=== PATIENT | male | born 1985 | race Caucasian/White ===

== ENCOUNTER 2017-02-26 17:28 | Observation (INO) ==
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
[2017-02-26 18:46] LABS: Basophils # 0.1 K/mcL (0.0-0.2); Basophils % 1.2 %; Eosinophils # 0.2 K/mcL (0.0-0.6); Eosinophils % 2.7 %; Hematocrit 44.3 % (37.5-50.1); Hemoglobin 15.2 g/dL (12.9-16.9); Immature Granulocytes % 0.3 % (0-4); Lymphocytes # 2.5 K/mcL (0.6-4.6); Lymphocytes % 33.9 %; Mean Corpuscular HGB Conc 34.3 g/dL (31.6-35.5); Mean Corpuscular Hemoglobin 29.8 pg (28.0-33.3); Mean Corpuscular Volume 86.9 fL (83.0-100.0); Mean Platelet Volume 10.1 fL (9.4-12.4); Monocytes # 0.7 K/mcL (0.0-1.3); Monocytes % 8.9 %; Neutrophils # 3.9 K/mcL (1.6-8.9); Platelet Count 346 K/mcL (140-400); Red Cell Distribution Width 15.3 % (11.5-14.5)
[2017-02-26 19:01] LABS: Acetaminophen < 1.0 mcg/mL (10-30); BUN/Creatinine Ratio 12 (6-26); Blood Urea Nitrogen 8 mg/dL (8-26); Calcium 9.3 mg/dL (8.6-10.8); Carbon Dioxide 28 mEq/L (19-29); Chloride 99 mEq/L (98-109); Ethanol < 10 mg/dL (0-10); Glucose 94 mg/dL (70-99); Osmolality,Calculated 282 (280-300); Potassium 3.9 mEq/L (3.5-4.5); Salicylate < 5.0 mg/dL (15-30); Sodium 137 mEq/L (136-145); eGFR For African Americans > 60 (> 60); eGFR For Non-African Americans > 60 (> 60)
[2017-02-26 19:34] LABS: Bilirubin,Urine Negative (Negative); Blood,Urine Negative (Negative); Clarity,Urine Clear (Clear); Color,Urine Yellow (Yellow); Glucose,Urine (UA) Normal (Normal); Ketones,Urine Negative (Negative); Leukocyte Esterase,Urine Trace (Negative); Nitrite,Urine Negative (Negative); PH,Urine 5.5 pH Units (5.0-8.0); Protein,Urine Negative (Neg-Trace); Specific Gravity,Urine 1.017 (1.010-1.025); Urobilinogen,Urine Normal (Normal)
[2017-02-26 19:37] LABS: Bacteria,Urine None Seen per hpf (None-Few); Hyaline Casts,Urine None Seen per lpf (None-Few); RBC,Urine 0-3 per hpf (0-3); Squamous Epithelial Cell,Urine Moderate per lpf (None-Few)
[2017-02-26 19:40] LABS: Amphetamine Screen,Urine Negative ng/mL (Cutoff=1000); Barbiturate Screen,Urine Negative ng/mL (Cutoff=200); Benzodiazepines Screen,Urine Negative ng/mL (Cutoff=200); Cannabinoid Screen,Urine Positive ng/mL (Cutoff = 50); Cocaine Screen,Urine Negative ng/mL (Cutoff= 300); Opiate Screen,Urine Positive ng/mL (Cutoff=300); Phencyclidine Screen,Urine Negative ng/mL (Cutoff=25)
--- NOTE | 2017-02-26 20:04 | Emergency Department Note ---
START Narrative - START START: I examined this patient and my medical decision-making was reviewed with the SCRIPT COORDINATOR/PA/Advanced Practice Nurse/Resident Physician. I agree with the documented findings, disposition and treatment plan as described except to the extent set forth below. The patient does have suicidal ideation. No visual or auditory hallucinations. Has had 2 suicide attempts in the past. Will be kept for mental health evaluation 2003
--- NOTE | 2017-02-26 23:37 | Emergency Department Note ---
Disposition Clinical Impression: Suicidal ideation Disposition: Admitted As Inpatient Condition: Fair Referrals: NO,PCP [Primary Care Provider] - Forms: ED Satisfaction Letter Psych HPI - General Chief Complaint: ED Psychiatric Symptoms Stated Complaint: SI Time Seen by Provider: 02/26/17 17:57 Source: patient - History of Present Illness Improves with: medication Worsens with: drug use - Related Data Home Medications Medication Instructions Recorded Confirmed Buprenorphine HCl/Naloxone HCl 16 mg SL BID 11/09/16 01/19/17 [Suboxone 4 mg-1 mg Sl Film] Previous Rx's Medication Instructions Recorded Ibuprofen [Motrin] 600 mg PO Q6HR PRN #20 tab 01/19/17 Allergies Allergy/AdvReac Type Severity Reaction Status Date / Time No Known Allergies Allergy Verified 11/09/16 15:05 Musculoskeletal: Reports: joint swelling, arthralgia Neurological: Reports: weakness Psychiatric: Reports: depression, suicidal thoughts Past Medical History - Past Medical History Medical history: Reports: non-contributory Surgical history: Reports: non-contributory Psychiatric history: Reports: depression - Social History Smoking Status: Current every day smoker Smokeless Tobacco Status: No Alcohol use: Reports: heavy Drug use: Reports: opiates, marijuana, other (see HPI) Physical Exam - General Limitations: no limitations General appearance: alert, in no apparent distress Course Course Narrative: This patient was signed out at shift change from Dr. sood and Dr. Broderick. Please refer to their notes for complete details of history and physical examination. Patient presented for suicidal ideation and has been evaluated by the psychiatry service. At shift change the patient is just awaiting placement and a [facility] treatment facility for psychiatry and substance abuse. 03:20 patient is being admitted here to [address] Psych Service. Vital Signs Temperature 97.9 F 02/26/17 17:29 Pulse Rate 88 02/26/17 17:29 Respiratory Rate 16 02/26/17 17:29 Blood Pressure 134/77 02/26/17 17:29 O2 Sat by Pulse Oximetry 97 02/26/17 17:29 Temperature 97.9 F 02/26/17 17:29 Pulse Rate 72 02/27/17 02:31 Respiratory Rate 18 02/27/17 02:31 Blood Pressure 112/7 02/27/17 02:31 O2 Sat by Pulse Oximetry 94 L 02/27/17 02:31 Oxygen Delivery Oxygen Delivery Room Air Psych - Lab Data Result diagrams: 02/26/17 18:28 02/26/17 18:28 Lab Results 02/26/17 02/26/17 02/26/17 Range/Units 18:05 18:05 18:28 WBC 7.4 (4.3-11.1) K/mcL RBC 5.10 (4.19-5.50) M/mcL Hgb 15.2 (12.9-16.9) g/dL Hct 44.3 (37.5-50.1) % MCV 86.9 (83.0-100.0) fL MCH 29.8 (28.0-33.3) pg MCHC 34.3 (31.6-35.5) g/dL RDW 15.3 H (11.5-14.5) % Plt Count 346 (140-400) K/mcL MPV 10.1 (9.4-12.4) fL Immature Gran % 0.3 (0-4) % Seg Neutrophils % 53.0 % Lymphocytes % 33.9 % Monocytes % 8.9 % Eosinophils % 2.7 % Basophils % 1.2 % Neutrophils # 3.9 (1.6-8.9) K/mcL Lymphocytes # 2.5 (0.6-4.6) K/mcL Monocytes # 0.7 (0.0-1.3) K/mcL Eosinophils # 0.2 (0.0-0.6) K/mcL Basophils # 0.1 (0.0-0.2) K/mcL Sodium (136-145) mEq/L Potassium (3.5-4.5) mEq/L Chloride (98-109) mEq/L Carbon Dioxide (19-29) mEq/L BUN (8-26) mg/dL Creatinine (0.72-1.25) mg/dL Est GFR ( Amer) (> 60) Est GFR (Non-Af Amer) (> 60) BUN/Creatinine Ratio (6-26) Glucose (70-99) mg/dL Calculated Osmolality (280-300) Calcium (8.6-10.8) mg/dL Urine Color Yellow (Yellow) Urine Clarity Clear (Clear) Urine pH 5.5 (5.0-8.0) pH Units Ur Specific [place] 1.017 (1.010-1.025) Urine Protein Negative (Neg-Trace) mg/dL Urine Glucose (UA) Normal (Normal) mg/dL Urine Ketones Negative (Negative) mg/dL Urine Blood Negative (Negative) Urine Nitrite Negative (Negative) Urine Bilirubin Negative (Negative) Urine Urobilinogen Normal (Normal) mg/dL Ur Leukocyte Esterase Trace H (Negative) Urine Microscopic RBC 0-3 (0-3) per hpf Urine Microscopic WBC 5-15 H (0-3) per hpf Ur Squamous Epith Cells Moderate H (None-Few) per lpf Urine Bacteria None Seen (None-Few) per hpf Hyaline Casts None Seen (None-Few) per lpf Salicylates (15-30) mg/dL Urine Opiates Screen Positive H (Fdpaxw=703) ng/mL Acetaminophen (10-30) mcg/mL Ur Barbiturates Screen Negative (Kogdma=686) ng/mL Ur Phencyclidine Scrn Negative (Cutoff=25) ng/mL Ur Amphetamines Screen Negative (Tmqcnl=1282) ng/mL U Benzodiazepines Scrn Negative (Bzivko=795) ng/mL Urine Cocaine Screen Negative (Cutoff= 300) ng/mL U Marijuana (THC) Screen Positive H (Cutoff = 50) ng/mL Ethyl Alcohol (0-10) mg/dL 02/26/17 Range/Units 18:28 WBC (4.3-11.1) K/mcL RBC (4.19-5.50) M/mcL Hgb (12.9-16.9) g/dL Hct (37.5-50.1) % MCV (83.0-100.0) fL MCH (28.0-33.3) pg MCHC (31.6-35.5) g/dL RDW (11.5-14.5) % Plt Count (140-400) K/mcL MPV (9.4-12.4) fL Immature Gran % (0-4) % Seg Neutrophils % % Lymphocytes % % Monocytes % % Eosinophils % % Basophils % % Neutrophils # (1.6-8.9) K/mcL Lymphocytes # (0.6-4.6) K/mcL Monocytes # (0.0-1.3) K/mcL Eosinophils # (0.0-0.6) K/mcL Basophils # (0.0-0.2) K/mcL Sodium 137 (136-145) mEq/L Potassium 3.9 (3.5-4.5) mEq/L Chloride 99 (98-109) mEq/L Carbon Dioxide 28 (19-29) mEq/L BUN 8 (8-26) mg/dL Creatinine 0.68 L (0.72-1.25) mg/dL Est GFR ( Amer) > 60 (> 60) Est GFR (Non-Af Amer) > 60 (> 60) BUN/Creatinine Ratio 12 (6-26) Glucose 94 (70-99) mg/dL Calculated Osmolality 282 (280-300) Calcium 9.3 (8.6-10.8) mg/dL Urine Color (Yellow) Urine Clarity (Clear) Urine pH (5.0-8.0) pH Units Ur Specific [place] (1.010-1.025) Urine Protein (Neg-Trace) mg/dL Urine Glucose (UA) (Normal) mg/dL Urine Ketones (Negative) mg/dL Urine Blood (Negative) Urine Nitrite (Negative) Urine Bilirubin (Negative) Urine Urobilinogen (Normal) mg/dL Ur Leukocyte Esterase (Negative) Urine Microscopic RBC (0-3) per hpf Urine Microscopic WBC (0-3) per hpf Ur Squamous Epith Cells (None-Few) per lpf Urine Bacteria (None-Few) per hpf Hyaline Casts (None-Few) per lpf Salicylates < 5.0 L (15-30) mg/dL Urine Opiates Screen (Rimuuh=496) ng/mL Acetaminophen < 1.0 L (10-30) mcg/mL Ur Barbiturates Screen (Qtkgrc=910) ng/mL Ur Phencyclidine Scrn (Cutoff=25) ng/mL Ur Amphetamines Screen (Vdkwrj=2189) ng/mL U Benzodiazepines Scrn (Lngbrs=145) ng/mL Urine Cocaine Screen (Cutoff= 300) ng/mL U Marijuana (THC) Screen (Cutoff = 50) ng/mL Ethyl Alcohol < 10 (0-10) mg/dL Psychiatric Medical Clearance - Medical Clearance Checklist Medical History: No Social History Section defined Current Vitals: Last Vital Signs Temp 97.9 F 02/26/17 17:29 Pulse 72 02/27/17 02:31 Resp 18 02/27/17 02:31 BP 112/7 02/27/17 02:31 Pulse Ox 94 L 02/27/17 02:31 Psychiatric Lab Panel: Drug Levels and Toxicity 02/26/17 02/26/17 18:05 18:28 Urine Opiates Screen Positive H Acetaminophen < 1.0 L Ur Barbiturates Screen Negative Ur Phencyclidine Scrn Negative Ur Amphetamines Screen Negative U Benzodiazepines Scrn Negative Urine Cocaine Screen Negative U Marijuana (THC) Screen Positive H Ethyl Alcohol < 10 Abnormal Labs: Abnormal lab results RDW 15.3 % (11.5-14.5) H 02/26/17 18:28 Creatinine 0.68 mg/dL (0.72-1.25) L 02/26/17 18:28 Ur Leukocyte Esterase Trace (Negative) H 02/26/17 18:05 Urine Microscopic WBC 5-15 per hpf (0-3) H 02/26/17 18:05 Ur Squamous Epith Cells Moderate per lpf (None-Few) H 02/26/17 18:05 Salicylates < 5.0 mg/dL (15-30) L 02/26/17 18:28 Urine Opiates Screen Positive ng/mL (Yeqjcq=271) H 02/26/17 18:05 Acetaminophen < 1.0 mcg/mL (10-30) L 02/26/17 18:28 U Marijuana (THC) Screen Positive ng/mL (Cutoff = 50) H 02/26/17 18:05 Statement of Medical Clearance: I have evaluated the patient, reviewed diagnostic information, and certify that the patient's medical condition is sufficiently stable that transfer to the psychiatric unit does not pose a significant risk of deterioration.
[2017-02-27] MEDS ORDERED: traZODone 50 MG TABLET PO PRN (03:40)
[2017-02-27] MEDS ORDERED: *HR* LORazepam 1 MG TABLET PO PRN (03:40)
[2017-02-27] MEDS ORDERED: hydrOXYzine pamoate 25 MG CAPSULE PO PRN (03:40)
[2017-02-27] MEDS ORDERED: *HR* LORazepam 2 MG/ML VIAL IM PRN (03:40)
[2017-02-27] MEDS ORDERED: Ibuprofen 400 MG TABLET PO PRN (03:40)
[2017-02-27] MEDS ORDERED: MOM Conc 10 ML UD.LIQ PO PRN (03:40)
[2017-02-27] MEDS ORDERED: Haloperidol Lactate 5 MG/ML VIAL IM PRN (03:40)
[2017-02-27] MEDS ORDERED: Mag Hydrox/Al Hydrox/Simeth 30 ML UDC PO PRN (03:40)
[2017-02-27] MEDS: Nicotine 21 MG PATCH.TD24 TD SCH ×2 (04:02→09:14)
[2017-02-27 09:29] VITALS: BP 110/69
--- NOTE | 2017-02-27 13:08 | Discharge Summary ---
Date of Encounter: 02/28/17 Time of Encounter: 12:00 History of Present Illness Chief complaint: Suicidal ideation on and off Admitted From: Emergency Dept History of Present Illness: Mr. Jfafe is a 31 year old male admitted from the emergency room suicidal ideation and dependence on opiates and consuming large quantities of alcohol. Patient stated that he is interested in detox and Suboxone . he said he has Suboxone at home and he wants to go home and use. and during the evaluation patient was anxious and decided that this hospitalization is not going to help him and he did not believe the medication will help him and he believed that he needed to be referred to a chemical dependency program. 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 Patient was medically stable and denied any suicidal ideation or self- harm. Past Med Surg Social Fam HX - Past Medical History Medical history: non-contributory - Past Psychiatric History Psychiatric history: Reports: anxiety, depression, prior suicide attempt, previous psychiatric hospitalization, other (Substance abuse and dependence, opiate dependence) Family psychiatric history: Unknown Family History of Suicide: Unknown - Past Surgical History Surgical History: non-contributory - Social History Smoking Status: Current every day smoker Smokeless Tobacco Status: No Alcohol use: heavy Drug use: opiates, marijuana, other (see HPI) Medications - Discharge Medications Buprenorphine HCl/Naloxone HCl [Suboxone 4 mg-1 mg Sl Film] 16 mg SL BID [History] Ibuprofen [Motrin] 600 mg PO Q6HR PRN #20 tab 01/19/17 [Rx] Allergies No Known Allergies Allergy (Verified 11/09/16 15:05) Review of Systems Psychiatric: Reports: suicidal ideation, other (Need Suboxone) Mental Status Exam - Mental Status Exam Patient orientation: Yes Person, Yes Time, Yes Place Level of alertness: Alert Patient appearance: Appropriate, Well Groomed Behavior: calm, cooperative, anxious, impulsive Psychomotor activity: Normal Eye contact: Maintains Eye Contact Mood description: Anxious, Labile Affect description: congruent with mood, full range, anxious Speech pattern: Normal rate, Normal rhythm, Normal tone Speech Volume: Normal Thought process: Linear, Goal Oriented Thought Content: No Suicidal ideation, No Homicidal ideation, No Overt delusions Perceptual Disturbances: No Auditory hallucinations, No Visual hallucinations Judgment: Limited Insight: Partial Results - Vital Signs Vital signs: Temp Pulse Resp BP Pulse Ox 98.2 F 62 18 110/69 94 L 02/27/17 09:25 02/27/17 09:25 02/27/17 09:25 02/27/17 09:25 02/27/17 02:31 - Labs Labs: Laboratory Last Values WBC 7.4 K/mcL (4.3-11.1) 02/26/17 18:28 RBC 5.10 M/mcL (4.19-5.50) 02/26/17 18:28 Hgb 15.2 g/dL (12.9-16.9) 02/26/17 18:28 Hct 44.3 % (37.5-50.1) 02/26/17 18:28 MCV 86.9 fL (83.0-100.0) 02/26/17 18: MCH 29.8 pg (28.0-33.3) 02/26/17 18: MCHC 34.3 g/dL (31.6-35.5) 02/26/17 18:28 RDW 15.3 % (11.5-14.5) H 02/26/17 18:28 Plt Count 346 K/mcL (140-400) 02/26/17 18:28 MPV 10.1 fL (9.4-12.4) 02/26/17 18:28 Immature Gran % 0.3 % (0-4) 02/26/17 18:28 Seg Neutrophils % 53.0 % 02/26/17 18:28 Lymphocytes % 33.9 % 02/26/17 18:28 Monocytes % 8.9 % 02/26/17 18:28 Eosinophils % 2.7 % 02/26/17 18:28 Basophils % 1.2 % 02/26/17 18:28 Neutrophils # 3.9 K/mcL (1.6-8.9) 02/26/17 18:28 Lymphocytes # 2.5 K/mcL (0.6-4.6) 02/26/17 18:28 Monocytes # 0.7 K/mcL (0.0-1.3) 02/26/17 18:28 Eosinophils # 0.2 K/mcL (0.0-0.6) 02/26/17 18:28 Basophils # 0.1 K/mcL (0.0-0.2) 02/26/17 18:28 Sodium 137 mEq/L (136-145) 02/26/17 18:28 Potassium 3.9 mEq/L (3.5-4.5) 02/26/17 18:28 Chloride 99 mEq/L (98-109) 02/26/17 18:28 Carbon Dioxide 28 mEq/L (19-29) 02/26/17 18:28 BUN 8 mg/dL (8-26) 02/26/17 18:28 Creatinine 0.68 mg/dL (0.72-1.25) L 02/26/17 18:28 Est GFR ( Amer) > 60 (> 60) 02/26/17 18:28 Est GFR (Non-Af Amer) > 60 (> 60) 02/26/17 18:28 BUN/Creatinine Ratio 12 (6-26) 02/26/17 18:28 Glucose 94 mg/dL (70-99) 02/26/17 18:28 Calculated Osmolality 282 (280-300) 02/26/17 18:28 Calcium 9.3 mg/dL (8.6-10.8) 02/26/17 18:28 Urine Color Yellow (Yellow) 02/26/17 18:05 Urine Clarity Clear (Clear) 02/26/17 18:05 Urine pH 5.5 pH Units (5.0-8.0) 02/26/17 18:05 Ur Specific [place] 1.017 (1.010-1.025) 02/26/17 18:05 Urine Protein Negative mg/dL (Neg-Trace) 02/26/17 18:05 Urine Glucose (UA) Normal mg/dL (Normal) 02/26/17 18:05 Urine Ketones Negative mg/dL (Negative) 02/26/17 18:05 Urine Blood Negative (Negative) 02/26/17 18:05 Urine Nitrite Negative (Negative) 02/26/17 18:05 Urine Bilirubin Negative (Negative) 02/26/17 18:05 Urine Urobilinogen Normal mg/dL (Normal) 02/26/17 18:05 Ur Leukocyte Esterase Trace (Negative) H 02/26/17 18:05 Urine Microscopic RBC 0-3 per hpf (0-3) 02/26/17 18:05 Urine Microscopic WBC 5-15 per hpf (0-3) H 02/26/17 18:05 Ur Squamous Epith Cells Moderate per lpf (None-Few) H 02/26/17 18:05 Urine Bacteria None Seen per hpf (None-Few) 02/26/17 18:05 Hyaline Casts None Seen per lpf (None-Few) 02/26/17 18:05 Salicylates < 5.0 mg/dL (15-30) L 02/26/17 18:28 Urine Opiates Screen Positive ng/mL (Wqcaym=788) H 02/26/17 18:05 Acetaminophen < 1.0 mcg/mL (10-30) L 02/26/17 18:28 Ur Barbiturates Screen Negative ng/mL (Djdmvy=945) 02/26/17 18:05 Ur Phencyclidine Scrn Negative ng/mL (Cutoff=25) 02/26/17 18:05 Ur Amphetamines Screen Negative ng/mL (Mjhiys=7154) 02/26/17 18:05 U Benzodiazepines Scrn Negative ng/mL (Ekycio=475) 02/26/17 18:05 Urine Cocaine Screen Negative ng/mL (Cutoff= 300) 02/26/17 18:05 U Marijuana (THC) Screen Positive ng/mL (Cutoff = 50) H 02/26/17 18:05 Ethyl Alcohol < 10 mg/dL (0-10) 02/26/17 18:28 Diagnosis - Discharge Diagnosis (1) Suicidal ideation Status: Acute (2) Opiate dependence, continuous Status: Acute Assessment and Plan - Patient/Caregiver Discharge Instructions Activity: resume usual activities as tolerated Diet: regular diet Additional Instructions: Patient declines outpatient follow-up for mental health or substance abuse services. Patient indicates he will continue using his own supply of Suboxone that he has at home until he is able to enter a dedicated detox program. - Follow up Plan Follow up with: NO,PCP [Primary Care Provider] - Functional capacity at discharge: independent ambulation Overall status at discharge: Stable Disposition: Left Against Medical Advice Provider Date of admission: 02/27/17 03:26 Primary care physician: [facility] Discharging clinician: Hemal Puga Hospital Course Hospital course: Mr. Jaffe is a 31 year old male - Time Spent with Patient Total time spent providing and/or coordinating discharge services: Greater than 30 minutes Quality - Multiple Antipsychotics Patient discharged on 2 or more antipsychotic medications: No
== END 2017-02-27 16:50 | disposition left against medical advice (07) ==
LOC: EMEROO 17:28 → INTOOBSV 02-27 03:26 → 1ANU 02-27 03:26
PROVIDERS: ADMIT Psychiatry & Neurology Psychiatry; ATTEND Psychiatry & Neurology Psychiatry

== ENCOUNTER 2017-09-04 18:30 | Inpatient (IN) ==
--- NOTE | 2017-09-04 19:06 | Emergency Department Note ---
Disposition Clinical Impression: Suicidal ideation, Polysubstance abuse Alcohol intoxication Qualifiers: Complication of substance-induced condition: uncomplicated Qualified Code(s): F10.920 - Alcohol use, unspecified with intoxication, uncomplicated Disposition: Still a Patient Condition: Fair Referrals: NONE,PCP [Primary Care Provider] - Forms: ED Satisfaction Letter Time of Disposition: 22:12 Psych HPI - General Chief Complaint: ED Psychiatric Symptoms Stated Complaint: SI Time Seen by Provider: 09/04/17 18:53 Source: patient, family Mode of arrival: ambulatory Limitations: no limitations Nursing Notes Reviewed: Yes Vital Signs Reviewed: Yes - History of Present Illness HPI Narrative: Patient feels suicidal and depressed. He ran out of his behavioral medications in June. He admits to using marijuana, drinking alcohol, using Valium, Xanax and Suboxone. Pt complaint: suicidal ideation, feels depressed Onset (ago): day(s) Duration: constant History of similar episodes: Yes Improves with: none Worsens with: drug use Context: recent alcohol abuse, recent drug abuse, not taking psychiatric medications Alleged intoxication: Yes Associated Psychiatric Symptoms: depression, suicidal ideation Associated symptoms: Reports: denies other symptoms Traumatic symptoms: denies traumatic injury Treatments prior to arrival: none Self harm or harm to others: admits thoughts of self harm - Related Data Previous Rx's Medication Instructions Recorded Naproxen [Naprosyn] 500 mg PO BID #14 tablet 07/15/17 predniSONE [PredniSONE] 40 mg PO DAILY 7 Days tablet 07/15/17 Allergies Allergy/AdvReac Type Severity Reaction Status Date / Time No Known Allergies Allergy Verified 07/15/17 16:59 All systems ED: reviewed and negative except as stated. Constitutional: Reports: as per HPI Eyes: Reports: as per HPI ENT ED: Reports: as per HPI Cardiovascular: Reports: as per HPI Respiratory: Reports: as per HPI Gastrointestinal: Reports: as per HPI Genitourinary: Reports: as per HPI Musculoskeletal: Reports: as per HPI Integumentary: Reports: as per HPI Neurological: Reports: as per HPI Psychiatric: Reports: depression, suicidal thoughts Endocrine: Reports: as per HPI Hematological/Lymphatic: Reports: as per HPI Allergic/Immunologic: Reports: as per HPI Past Medical History - Past Medical History Source: patient Medical history: Reports: no medical history, other Surgical history: Reports: orthopedic, other (Right lower leg fixation) Psychiatric history: Reports: anxiety, depression, prior suicide attempt, previous psychiatric hospitalization, other - Social History Smoking Status: Current every day smoker Smokeless Tobacco Status: No Alcohol use: Reports: heavy Drug use: Reports: opiates, marijuana, prescription drug abuse, other Physical Exam - General Limitations: no limitations General appearance: alert - Head Head exam: atraumatic - Eye Eye exam: Present: normal appearance, other (Scleral injection) - ENT ENT exam: normal exam - Neck Neck exam: Present: normal inspection - Chest Chest inspection: Present: normal inspection, symmetric chest wall rise - Respiratory Respiratory exam: Present: normal lung sounds bilaterally. Absent: respiratory distress - Cardiovascular Cardiovascular exam: Present: tachycardia, normal heart sounds - Rectal Exam Rectal exam: Present: deferred - Extremities Exam Extremities exam: Present: normal inspection - Neurological Exam Neurological exam: Present: alert, oriented X3, CN II-XII intact - Psychiatric Psychiatric exam: Present: normal affect, normal mood - Skin Skin exam: Present: warm, dry, intact Course Course Narrative: Patient presents feeling depressed and suicidal. I will attempt to clear him medically for behavioral evaluation. - Reevaluation(s) Reevaluation #1: Repeat alcohol level ordered. This study is pending. Care will be endorsed to Dr. Arriola at 11 PM. She will clear the patient medically and process the behavioral evaluation Vital Signs Temperature 99.3 F 09/04/17 18:52 Pulse Rate 136 09/04/17 18:52 Respiratory Rate 18 09/04/17 18:52 Blood Pressure 103/60 09/04/17 18:52 O2 Sat by Pulse Oximetry 94 09/04/17 18:52 Temperature 99.3 F 09/04/17 18:52 Pulse Rate 136 09/04/17 18:52 Respiratory Rate 18 09/04/17 18:52 Blood Pressure 103/60 09/04/17 18:52 O2 Sat by Pulse Oximetry 94 09/04/17 18:52 Oxygen Delivery Oxygen Delivery Room Air Psych - Lab Data Lab results reviewed: Yes I reviewed the patient's lab results. Result diagrams: 09/04/17 19:13 09/04/17 19:13 Lab Results 09/04/17 09/04/17 09/04/17 Range/Units 19:13 19:13 20:40 WBC 7.7 (4.3-11.1) K/mcL RBC 4.88 (4.19-5.50) M/mcL Hgb 14.4 (12.9-16.9) g/dL Hct 43.0 (37.5-50.1) % MCV 88.1 (83.0-100.0) fL MCH 29.5 (28.0-33.3) pg MCHC 33.5 (31.6-35.5) g/dL RDW 13.2 (11.5-14.5) % Plt Count 313 (140-400) K/mcL MPV 10.2 (9.4-12.4) fL Immature Gran % 0.3 (0-4) % Seg Neutrophils % 54.6 % Lymphocytes % 31.4 % Monocytes % 7.8 % Eosinophils % 5.1 % Basophils % 0.8 % Neutrophils # 4.2 (1.6-8.9) K/mcL Lymphocytes # 2.4 (0.6-4.6) K/mcL Monocytes # 0.6 (0.0-1.3) K/mcL Eosinophils # 0.4 (0.0-0.6) K/mcL Basophils # 0.1 (0.0-0.2) K/mcL Sodium 143 (136-145) mEq/L Potassium 3.7 (3.5-4.5) mEq/L Chloride 109 (98-109) mEq/L Carbon Dioxide 24 (19-29) mEq/L BUN 5 L (8-26) mg/dL Creatinine 0.71 L (0.72-1.25) mg/dL Est GFR ( Amer) > 60 (> 60) Est GFR (Non-Af Amer) > 60 (> 60) BUN/Creatinine Ratio 7 (6-26) Glucose 98 (70-99) mg/dL Calculated Osmolality 293 (280-300) Calcium 9.0 (8.6-10.8) mg/dL Total Bilirubin 0.3 (0.2-1.2) mg/dL Direct Bilirubin 0.1 (0.0-0.5) mg/dL Indirect Bilirubin 0.2 (0.0-1.2) mg/dL AST 101 H (5-34) Units/L ALT 185 H (0-55) Units/L Alkaline Phosphatase 132 H (38-126) Units/L Serum Total Protein 7.6 (6.0-8.3) g/dL Albumin 3.7 (3.5-5.0) g/dL Globulin 3.9 H (2.4-3.5) g/dL Albumin/Globulin Ratio 0.9 L (1.1-2.2) Salicylates < 5.0 L (15-30) mg/dL Urine Opiates Screen Negative (Yonedg=702) ng/mL Acetaminophen < 1.0 L (10-30) mcg/mL Ur Barbiturates Screen Negative (Mlraxb=835) ng/mL Ur Phencyclidine Scrn Negative (Cutoff=25) ng/mL Ur Amphetamines Screen Negative (Brnivz=2468) ng/mL U Benzodiazepines Scrn Negative (Fuksey=563) ng/mL Urine Cocaine Screen Positive H (Cutoff= 300) ng/mL U Marijuana (THC) Screen Positive H (Cutoff = 50) ng/mL Ethyl Alcohol 131 H (0-10) mg/dL Psychiatric Medical Clearance - Medical Clearance Checklist Medical History: Suicidal ideation (Acute) Opiate dependence, continuous (Acute) Abdominal pain (Inactive) Acute anxiety (Inactive) Chest wall contusion (Inactive) Chest wall pain (Inactive) Closed right calcaneal fracture (Inactive) Contusion of left leg (Inactive) Contusion of right leg (Inactive) Fracture tibia/fibula (Inactive) Gastritis (Inactive) Laceration of right knee (Inactive) Tibia/fibula fracture (Inactive) No Social History Section defined Current Vitals: Last Vital Signs Temp 99.3 F 09/04/17 18:52 Pulse 136 09/04/17 18:52 Resp 18 09/04/17 18:52 BP 103/60 09/04/17 18:52 Pulse Ox 94 09/04/17 18:52 Psychiatric Lab Panel: Drug Levels and Toxicity 09/04/17 09/04/17 19:13 20:40 Urine Opiates Screen Negative Acetaminophen < 1.0 L Ur Barbiturates Screen Negative Ur Phencyclidine Scrn Negative Ur Amphetamines Screen Negative U Benzodiazepines Scrn Negative Urine Cocaine Screen Positive H U Marijuana (THC) Screen Positive H Ethyl Alcohol 131 H Abnormal Labs: Abnormal lab results BUN 5 mg/dL (8-26) L 09/04/17 19:13 Creatinine 0.71 mg/dL (0.72-1.25) L 09/04/17 19:13 AST 101 Units/L (5-34) H 09/04/17 19:13 ALT 185 Units/L (0-55) H 09/04/17 19:13 Alkaline Phosphatase 132 Units/L (38-126) H 09/04/17 19:13 Globulin 3.9 g/dL (2.4-3.5) H 09/04/17 19:13 Albumin/Globulin Ratio 0.9 (1.1-2.2) L 09/04/17 19:13 Salicylates < 5.0 mg/dL (15-30) L 09/04/17 19:13 Acetaminophen < 1.0 mcg/mL (10-30) L 09/04/17 19:13 Urine Cocaine Screen Positive ng/mL (Cutoff= 300) H 09/04/17 20:40 U Marijuana (THC) Screen Positive ng/mL (Cutoff = 50) H 09/04/17 20:40 Ethyl Alcohol 131 mg/dL (0-10) H 09/04/17 19:13 Statement of Medical Clearance: I have evaluated the patient, reviewed diagnostic information, and certify that the patient's medical condition is sufficiently stable that transfer to the psychiatric unit does not pose a significant risk of deterioration.
[2017-09-04 19:19] LABS: Basophils # 0.1 K/mcL (0.0-0.2); Basophils % 0.8 %; Eosinophils # 0.4 K/mcL (0.0-0.6); Eosinophils % 5.1 %; Hemoglobin 14.4 g/dL (12.9-16.9); Immature Granulocytes % 0.3 % (0-4); Lymphocytes # 2.4 K/mcL (0.6-4.6); Lymphocytes % 31.4 %; Mean Corpuscular HGB Conc 33.5 g/dL (31.6-35.5); Mean Corpuscular Hemoglobin 29.5 pg (28.0-33.3); Mean Corpuscular Volume 88.1 fL (83.0-100.0); Mean Platelet Volume 10.2 fL (9.4-12.4); Monocytes # 0.6 K/mcL (0.0-1.3); Monocytes % 7.8 %; Neutrophils # 4.2 K/mcL (1.6-8.9); Platelet Count 313 K/mcL (140-400); Red Blood Count 4.88 M/mcL (4.19-5.50); Red Cell Distribution Width 13.2 % (11.5-14.5); Segmented Neutrophils % 54.6 %
[2017-09-04 19:32] LABS: Alanine Aminotransferase 185 Units/L (0-55); Albumin 3.7 g/dL (3.5-5.0); Albumin/Globulin Ratio 0.9 (1.1-2.2); Alkaline Phosphatase 132 Units/L (38-126); Aspartate Amino Transferase 101 Units/L (5-34); BUN/Creatinine Ratio 7 (6-26); Bilirubin,Direct 0.1 mg/dL (0.0-0.5); Bilirubin,Indirect 0.2 mg/dL (0.0-1.2); Bilirubin,Total 0.3 mg/dL (0.2-1.2); Carbon Dioxide 24 mEq/L (19-29); Chloride 109 mEq/L (98-109); Ethanol 131 mg/dL (0-10); Globulin 3.9 g/dL (2.4-3.5); Glucose 98 mg/dL (70-99); Osmolality,Calculated 293 (280-300); Potassium 3.7 mEq/L (3.5-4.5); Sodium 143 mEq/L (136-145); Total Protein 7.6 g/dL (6.0-8.3); eGFR For African Americans > 60 (> 60); eGFR For Non-African Americans > 60 (> 60)
[2017-09-04 19:34] LABS: Acetaminophen < 1.0 mcg/mL (10-30); Blood Urea Nitrogen 5 mg/dL (8-26); Salicylate < 5.0 mg/dL (15-30)
[2017-09-04 20:59] LABS: Amphetamine Screen,Urine Negative ng/mL (Cutoff=1000); Barbiturate Screen,Urine Negative ng/mL (Cutoff=200); Benzodiazepines Screen,Urine Negative ng/mL (Cutoff=200); Cannabinoid Screen,Urine Positive ng/mL (Cutoff = 50); Cocaine Screen,Urine Positive ng/mL (Cutoff= 300); Opiate Screen,Urine Negative ng/mL (Cutoff=300); Phencyclidine Screen,Urine Negative ng/mL (Cutoff=25)
--- NOTE | 2017-09-05 00:26 | Emergency Department Note ---
Disposition Clinical Impression: Suicidal ideation, Polysubstance abuse Alcohol intoxication Qualifiers: Complication of substance-induced condition: uncomplicated Qualified Code(s): F10.920 - Alcohol use, unspecified with intoxication, uncomplicated Disposition: Admitted As Inpatient Condition: Fair Referrals: NONE,PCP [Primary Care Provider] - Forms: ED Satisfaction Letter Time of Disposition: 00:26 Psych HPI - General Chief Complaint: ED Psychiatric Symptoms Stated Complaint: SI Time Seen by Provider: 09/04/17 18:53 Source: patient, family Mode of arrival: ambulatory - History of Present Illness Duration: constant Improves with: none Worsens with: drug use Associated symptoms: Reports: denies other symptoms Treatments prior to arrival: none - Related Data Previous Rx's Medication Instructions Recorded Naproxen [Naprosyn] 500 mg PO BID #14 tablet 07/15/17 predniSONE [PredniSONE] 40 mg PO DAILY 7 Days tablet 07/15/17 Allergies Allergy/AdvReac Type Severity Reaction Status Date / Time No Known Allergies Allergy Verified 07/15/17 16:59 Constitutional: Reports: as per HPI Eyes: Reports: as per HPI ENT ED: Reports: as per HPI Cardiovascular: Reports: as per HPI Respiratory: Reports: as per HPI Gastrointestinal: Reports: as per HPI Genitourinary: Reports: as per HPI Musculoskeletal: Reports: as per HPI Integumentary: Reports: as per HPI Neurological: Reports: as per HPI Psychiatric: Reports: depression, suicidal thoughts Endocrine: Reports: as per HPI Hematological/Lymphatic: Reports: as per HPI Allergic/Immunologic: Reports: as per HPI Past Medical History - Past Medical History Medical history: Reports: no medical history, other Surgical history: Reports: orthopedic, other (Right lower leg fixation) Psychiatric history: Reports: anxiety, depression, prior suicide attempt, previous psychiatric hospitalization, other - Social History Smoking Status: Current every day smoker Smokeless Tobacco Status: No Alcohol use: Reports: heavy Drug use: Reports: opiates, marijuana, prescription drug abuse, other Physical Exam - General Limitations: no limitations General appearance: alert Course - Reevaluation(s) Reevaluation #1: Patient signed out pending evaluation by psych. Admitted to Time: 00:25 Vital Signs Temperature 99.3 F 09/04/17 18:52 Pulse Rate 136 09/04/17 18:52 Respiratory Rate 18 09/04/17 18:52 Blood Pressure 103/60 09/04/17 18:52 O2 Sat by Pulse Oximetry 94 09/04/17 18:52 Temperature 99.3 F 09/04/17 18:52 Pulse Rate 136 09/04/17 18:52 Respiratory Rate 18 09/04/17 18:52 Blood Pressure 103/60 09/04/17 18:52 O2 Sat by Pulse Oximetry 94 09/04/17 18:52 Oxygen Delivery Oxygen Delivery Room Air Psych - Lab Data Result diagrams: 09/04/17 19:13 09/04/17 19:13 Lab Results 09/04/17 09/04/17 09/04/17 Range/Units 19:13 19:13 20:40 WBC 7.7 (4.3-11.1) K/mcL RBC 4.88 (4.19-5.50) M/mcL Hgb 14.4 (12.9-16.9) g/dL Hct 43.0 (37.5-50.1) % MCV 88.1 (83.0-100.0) fL MCH 29.5 (28.0-33.3) pg MCHC 33.5 (31.6-35.5) g/dL RDW 13.2 (11.5-14.5) % Plt Count 313 (140-400) K/mcL MPV 10.2 (9.4-12.4) fL Immature Gran % 0.3 (0-4) % Seg Neutrophils % 54.6 % Lymphocytes % 31.4 % Monocytes % 7.8 % Eosinophils % 5.1 % Basophils % 0.8 % Neutrophils # 4.2 (1.6-8.9) K/mcL Lymphocytes # 2.4 (0.6-4.6) K/mcL Monocytes # 0.6 (0.0-1.3) K/mcL Eosinophils # 0.4 (0.0-0.6) K/mcL Basophils # 0.1 (0.0-0.2) K/mcL Sodium 143 (136-145) mEq/L Potassium 3.7 (3.5-4.5) mEq/L Chloride 109 (98-109) mEq/L Carbon Dioxide 24 (19-29) mEq/L BUN 5 L (8-26) mg/dL Creatinine 0.71 L (0.72-1.25) mg/dL Est GFR ( Amer) > 60 (> 60) Est GFR (Non-Af Amer) > 60 (> 60) BUN/Creatinine Ratio 7 (6-26) Glucose 98 (70-99) mg/dL Calculated Osmolality 293 (280-300) Calcium 9.0 (8.6-10.8) mg/dL Total Bilirubin 0.3 (0.2-1.2) mg/dL Direct Bilirubin 0.1 (0.0-0.5) mg/dL Indirect Bilirubin 0.2 (0.0-1.2) mg/dL AST 101 H (5-34) Units/L ALT 185 H (0-55) Units/L Alkaline Phosphatase 132 H (38-126) Units/L Serum Total Protein 7.6 (6.0-8.3) g/dL Albumin 3.7 (3.5-5.0) g/dL Globulin 3.9 H (2.4-3.5) g/dL Albumin/Globulin Ratio 0.9 L (1.1-2.2) Salicylates < 5.0 L (15-30) mg/dL Urine Opiates Screen Negative (Gctfse=325) ng/mL Acetaminophen < 1.0 L (10-30) mcg/mL Ur Barbiturates Screen Negative (Ijybsx=340) ng/mL Ur Phencyclidine Scrn Negative (Cutoff=25) ng/mL Ur Amphetamines Screen Negative (Skskfz=6708) ng/mL U Benzodiazepines Scrn Negative (Lafpox=437) ng/mL Urine Cocaine Screen Positive H (Cutoff= 300) ng/mL U Marijuana (THC) Screen Positive H (Cutoff = 50) ng/mL Ethyl Alcohol 131 H (0-10) mg/dL 09/04/17 Range/Units 22:27 WBC (4.3-11.1) K/mcL RBC (4.19-5.50) M/mcL Hgb (12.9-16.9) g/dL Hct (37.5-50.1) % MCV (83.0-100.0) fL MCH (28.0-33.3) pg MCHC (31.6-35.5) g/dL RDW (11.5-14.5) % Plt Count (140-400) K/mcL MPV (9.4-12.4) fL Immature Gran % (0-4) % Seg Neutrophils % % Lymphocytes % % Monocytes % % Eosinophils % % Basophils % % Neutrophils # (1.6-8.9) K/mcL Lymphocytes # (0.6-4.6) K/mcL Monocytes # (0.0-1.3) K/mcL Eosinophils # (0.0-0.6) K/mcL Basophils # (0.0-0.2) K/mcL Sodium (136-145) mEq/L Potassium (3.5-4.5) mEq/L Chloride (98-109) mEq/L Carbon Dioxide (19-29) mEq/L BUN (8-26) mg/dL Creatinine (0.72-1.25) mg/dL Est GFR ( Amer) (> 60) Est GFR (Non-Af Amer) (> 60) BUN/Creatinine Ratio (6-26) Glucose (70-99) mg/dL Calculated Osmolality (280-300) Calcium (8.6-10.8) mg/dL Total Bilirubin (0.2-1.2) mg/dL Direct Bilirubin (0.0-0.5) mg/dL Indirect Bilirubin (0.0-1.2) mg/dL AST (5-34) Units/L ALT (0-55) Units/L Alkaline Phosphatase (38-126) Units/L Serum Total Protein (6.0-8.3) g/dL Albumin (3.5-5.0) g/dL Globulin (2.4-3.5) g/dL Albumin/Globulin Ratio (1.1-2.2) Salicylates (15-30) mg/dL Urine Opiates Screen (Grcsnr=463) ng/mL Acetaminophen (10-30) mcg/mL Ur Barbiturates Screen (Tdnetp=064) ng/mL Ur Phencyclidine Scrn (Cutoff=25) ng/mL Ur Amphetamines Screen (Fgqhap=4591) ng/mL U Benzodiazepines Scrn (Bvjxwc=691) ng/mL Urine Cocaine Screen (Cutoff= 300) ng/mL U Marijuana (THC) Screen (Cutoff = 50) ng/mL Ethyl Alcohol 42 H (0-10) mg/dL Psychiatric Medical Clearance - Medical Clearance Checklist Medical History: Suicidal ideation (Acute) Opiate dependence, continuous (Acute) Alcohol intoxication (Acute) Polysubstance abuse (Acute) Abdominal pain (Inactive) Acute anxiety (Inactive) Chest wall contusion (Inactive) Chest wall pain (Inactive) Closed right calcaneal fracture (Inactive) Contusion of left leg (Inactive) Contusion of right leg (Inactive) Fracture tibia/fibula (Inactive) Gastritis (Inactive) Laceration of right knee (Inactive) Tibia/fibula fracture (Inactive) No Social History Section defined Current Vitals: Last Vital Signs Temp 99.3 F 09/04/17 18:52 Pulse 136 09/04/17 18:52 Resp 18 09/04/17 18:52 BP 103/60 09/04/17 18:52 Pulse Ox 94 09/04/17 18:52 Psychiatric Lab Panel: Drug Levels and Toxicity 09/04/17 09/04/17 09/04/17 19:13 20:40 22:27 Urine Opiates Screen Negative Acetaminophen < 1.0 L Ur Barbiturates Screen Negative Ur Phencyclidine Scrn Negative Ur Amphetamines Screen Negative U Benzodiazepines Scrn Negative Urine Cocaine Screen Positive H U Marijuana (THC) Screen Positive H Ethyl Alcohol 131 H 42 H Abnormal Labs: Abnormal lab results BUN 5 mg/dL (8-26) L 09/04/17 19:13 Creatinine 0.71 mg/dL (0.72-1.25) L 09/04/17 19:13 AST 101 Units/L (5-34) H 09/04/17 19:13 ALT 185 Units/L (0-55) H 09/04/17 19:13 Alkaline Phosphatase 132 Units/L (38-126) H 09/04/17 19:13 Globulin 3.9 g/dL (2.4-3.5) H 09/04/17 19:13 Albumin/Globulin Ratio 0.9 (1.1-2.2) L 09/04/17 19:13 Salicylates < 5.0 mg/dL (15-30) L 09/04/17 19:13 Acetaminophen < 1.0 mcg/mL (10-30) L 09/04/17 19:13 Urine Cocaine Screen Positive ng/mL (Cutoff= 300) H 09/04/17 20:40 U Marijuana (THC) Screen Positive ng/mL (Cutoff = 50) H 09/04/17 20:40 Ethyl Alcohol 42 mg/dL (0-10) H 09/04/17 22:27 Statement of Medical Clearance: I have evaluated the patient, reviewed diagnostic information, and certify that the patient's medical condition is sufficiently stable that transfer to the psychiatric unit does not pose a significant risk of deterioration.
[2017-09-05] MEDS ORDERED: Mag Hydrox/Al Hydrox/Simeth 30 ML UDC PO PRN (00:45)
[2017-09-05] MEDS ORDERED: *HR* LORazepam 2 MG/ML VIAL IM PRN (00:45)
[2017-09-05] MEDS ORDERED: hydrOXYzine pamoate 25 MG CAPSULE PO PRN (00:45)
[2017-09-05] MEDS ORDERED: Ibuprofen 400 MG TABLET PO PRN (00:45)
[2017-09-05] MEDS ORDERED: MOM Conc 10 ML UD.LIQ PO PRN (00:45)
[2017-09-05] MEDS ORDERED: Haloperidol Lactate 5 MG/ML VIAL IM PRN (00:45)
[2017-09-05] MEDS ORDERED: traZODone 50 MG TABLET PO PRN (00:45)
--- NOTE | 2017-09-05 09:41 | Psychiatry History & Physical ---
Date of Encounter: 09/05/17 Time of Encounter: 09:20 History of Present Illness Patient Stated Chief Complaint: i want to be on medication Medicare Admission Attestation: For traditional Medicare patients the provided hospital inpatient services are reasonable and necessary and in the case of services not specified as inpatient -only under 42 CFR 419.22 (n), that they are appropriately provided as inpatient services in accordance 42 CFR 412.3. For Critical Access Hospital the patient may reasonably be expected to be discharged or transferred to a hospital within 96 hours after admission to the Critical Access Hospital. Admitted From: Emergency Dept Plans for Post Hospital Care: Home History of Present Illness: Mr. 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 He was admitted to inpatient as out of medications and feeling depress and suicidal , with plan to OD on heroin, he has been drinking and intoxicated with Alcohol , his mother bought him. He is depress, anxious , suicidal , irritable, mood swings, anger issues, sleep problems, difficulty concentration, substance use , tox positive for cocain , marijuana, and alcohol level high. he has [facility] , one year ago he was in [facility] in [place] and was given thorazine, zoloft and trazodone. he was taking these till ran out 1 month ago, he was [facility] has 5 , and released 2 months ago , he did not follow with his appointment and ran out of medicine. he has increase liver enzymes and is aware of it , denies any medical problems. he is anxious at present , restless and suicidal , irritable and has prior suicide attempts. Past Med Surg Social Fam HX - Past Medical History Medical history: no medical history, other - Past Psychiatric History Psychiatric history: Reports: anxiety, depression, panic disorder, prior suicide attempt, previous psychiatric hospitalization Family psychiatric history: Yes (maternal side strong history of bipolar and suicide) Family History of Suicide: Attempted - Past Surgical History Surgical History: orthopedic, other (Right lower leg fixation) - Social History Smoking Status: Current every day smoker Smokeless Tobacco Status: No Alcohol use: heavy Drug use: opiates, marijuana, prescription drug abuse, other Medications & Allergies No Known Home Drugs 09/05/17 [History] 3 Allergy/AdvReac Type Severity Reaction Status Date / Time No Known Allergies Allergy Verified 07/15/17 16:59 Review of Systems Constitutional: Denies: fever, chills, weakness, weight change Eyes: Denies: eye pain, vision change Ears, Nose, Throat: Denies: ear pain, throat pain, dental pain, hearing loss, congestion Cardiovascular: Denies: chest pain, palpitations, dyspnea on exertion Respiratory: Denies: cough, dyspnea, wheezes Gastrointestinal: Denies: abdominal pain, nausea, vomiting, diarrhea, constipation Genitourinary male: Denies: urgency, dysuria, frequency, genital lesions Genitourinary female: Denies: urgency, dysuria, frequency, abnormal menses, dyspareunia Musculoskeletal: Denies: joint swelling, joint pain Integumentary: Denies: rash, lesions, pruritus Neurological: Denies: headache, weakness, numbness, memory loss Psychiatric: Reports: depression, anxiety, abnormal sleep pattern, suicidal ideation, change in appetite, hopelessness, irritability, mood swings Endocrine: Denies: fatigue, heat or cold intolerance Hematologic/Lymphatic: Denies: easy bruising, lymphadenopathy Allergic/Immunologic: Denies: urticaria, itchy eyes Mental Status Exam Patient orientation: Yes Person, Yes Time, Yes Place Level of alertness: Alert Patient appearance: Appropriate Behavior: anxious, restless, impulsive Psychomotor activity: Increased Eye contact: Minimal Contact Mood description: Depressed, Anxious, Irritable Affect description: congruent with mood Speech pattern: Excessive Speech volume: Normal Thought process: Circumstantial, Racing Thought content: Yes Suicidal ideation, Yes Paranoid delusion Attention span: Unable to Sustain Attention Patient reliability: Questionable Historian Intelligence estimate: Average Judgment: Limited Insight: Minimal Exam - HEENT Head exam IM: Present: atraumatic, normal inspection, normocephalic Eye exam IM: Present: normal appearance ENT exam IM: Present: normal exam - Neurological Neurological exam IM: Present: alert, altered, CN II-XII intact, normal gait, oriented X3 - Skin Skin exam IM: Present: dry, warm Results - Vital Signs Vital signs: Temp Pulse Resp BP Pulse Ox 99.3 F 136 18 103/60 94 09/04/17 18:52 09/04/17 18:52 09/04/17 18:52 09/04/17 18:52 09/04/17 18:52 - Labs Labs: Laboratory Last Values WBC 7.7 K/mcL (4.3-11.1) 09/04/17 19:13 RBC 4.88 M/mcL (4.19-5.50) 09/04/17 19:13 Hgb 14.4 g/dL (12.9-16.9) 09/04/17 19:13 Hct 43.0 % (37.5-50.1) 09/04/17 19:13 MCV 88.1 fL (83.0-100.0) 09/04/17 19:13 MCH 29.5 pg (28.0-33.3) 09/04/17 19:13 MCHC 33.5 g/dL (31.6-35.5) 09/04/17 19:13 RDW 13.2 % (11.5-14.5) 09/04/17 19:13 Plt Count 313 K/mcL (140-400) 09/04/17 19:13 MPV 10.2 fL (9.4-12.4) 09/04/17 19:13 Immature Gran % 0.3 % (0-4) 09/04/17 19:13 Seg Neutrophils % 54.6 % 09/04/17 19:13 Lymphocytes % 31.4 % 09/04/17 19:13 Monocytes % 7.8 % 09/04/17 19:13 Eosinophils % 5.1 % 09/04/17 19:13 Basophils % 0.8 % 09/04/17 19:13 Neutrophils # 4.2 K/mcL (1.6-8.9) 09/04/17 19:13 Lymphocytes # 2.4 K/mcL (0.6-4.6) 09/04/17 19:13 Monocytes # 0.6 K/mcL (0.0-1.3) 09/04/17 19:13 Eosinophils # 0.4 K/mcL (0.0-0.6) 09/04/17 19:13 Basophils # 0.1 K/mcL (0.0-0.2) 09/04/17 19:13 Sodium 143 mEq/L (136-145) 09/04/17 19:13 Potassium 3.7 mEq/L (3.5-4.5) 09/04/17 19:13 Chloride 109 mEq/L (98-109) 09/04/17 19:13 Carbon Dioxide 24 mEq/L (19-29) 09/04/17 19:13 BUN 5 mg/dL (8-26) L 09/04/17 19:13 Creatinine 0.71 mg/dL (0.72-1.25) L 09/04/17 19:13 Est GFR ( Amer) > 60 (> 60) 09/04/17 19:13 Est GFR (Non-Af Amer) > 60 (> 60) 09/04/17 19:13 BUN/Creatinine Ratio 7 (6-26) 09/04/17 19:13 Glucose 98 mg/dL (70-99) 09/04/17 19:13 Calculated Osmolality 293 (280-300) 09/04/17 19:13 Calcium 9.0 mg/dL (8.6-10.8) 09/04/17 19:13 Total Bilirubin 0.3 mg/dL (0.2-1.2) 09/04/17 19:13 Direct Bilirubin 0.1 mg/dL (0.0-0.5) 09/04/17 19:13 Indirect Bilirubin 0.2 mg/dL (0.0-1.2) 09/04/17 19:13 AST 101 Units/L (5-34) H 09/04/17 19:13 ALT 185 Units/L (0-55) H 09/04/17 19:13 Alkaline Phosphatase 132 Units/L (38-126) H 09/04/17 19:13 Serum Total Protein 7.6 g/dL (6.0-8.3) 09/04/17 19:13 Albumin 3.7 g/dL (3.5-5.0) 09/04/17 19:13 Globulin 3.9 g/dL (2.4-3.5) H 09/04/17 19:13 Albumin/Globulin Ratio 0.9 (1.1-2.2) L 09/04/17 19:13 Salicylates < 5.0 mg/dL (15-30) L 09/04/17 19:13 Urine Opiates Screen Negative ng/mL (Kncqox=082) 09/04/17 20:40 Acetaminophen < 1.0 mcg/mL (10-30) L 09/04/17 19:13 Ur Barbiturates Screen Negative ng/mL (Qpszxc=537) 09/04/17 20:40 Ur Phencyclidine Scrn Negative ng/mL (Cutoff=25) 09/04/17 20:40 Ur Amphetamines Screen Negative ng/mL (Wblybo=0360) 09/04/17 20:40 U Benzodiazepines Scrn Negative ng/mL (Uzajbo=274) 09/04/17 20:40 Urine Cocaine Screen Positive ng/mL (Cutoff= 300) H 09/04/17 20:40 U Marijuana (THC) Screen Positive ng/mL (Cutoff = 50) H 09/04/17 20:40 Ethyl Alcohol 42 mg/dL (0-10) H 09/04/17 22:27 Assessment and Plan (1) Suicidal ideation Current visit: Yes Status: Acute Plan: Admit inpatient for safety and stabilization, Close observation, Suicide Precautions per unit protocol, Encourage participation in unit milieu, Group Therapy, Monitor sleep, Monitor appetite, Family/Supportive other meeting Additional Plan: in patient stabilization as plan to OD on heroin. Risks, benefits, side effects, alternatives discussed w/pt: Yes Patient agreeable to treatment: Yes Plans for Post Hospital Care: Home Estimated Length of Stay (Days): 5 (2) Major depress dis, severe Current visit: Yes Status: Acute Plan: Admit inpatient for safety and stabilization, Close observation, Suicide Precautions per unit protocol, Encourage participation in unit milieu, Group Therapy, Monitor sleep, Monitor appetite, Family/Supportive other meeting Additional Plan: in patient stabilization and start remeron 15 mg hs , and gabapentin 100 mgtid. Risks, benefits, side effects, alternatives discussed w/pt: Yes Patient agreeable to treatment: Yes Plans for Post Hospital Care: Home (3) Alcohol dependence Current visit: Yes Status: Acute Plan: Admit inpatient for safety and stabilization, Close observation, Suicide Precautions per unit protocol, Encourage participation in unit milieu, Group Therapy, Monitor sleep, Monitor appetite Risks, benefits, side effects, alternatives discussed w/pt: Yes Patient agreeable to treatment: Yes Plans for Post Hospital Care: Home Qualifiers: Substance use status: with intoxication Complication of substance-induced condition: uncomplicated Qualified Code(s): F10.220 - Alcohol dependence with intoxication, uncomplicated (4) Polysubstance abuse Current visit: Yes Status: Acute Plan: Admit inpatient for safety and stabilization, Close observation, Suicide Precautions per unit protocol, Group Therapy Risks, benefits, side effects, alternatives discussed w/pt: Yes Patient agreeable to treatment: Yes Plans for Post Hospital Care: Home (5) Personality disorder Current visit: Yes Status: Chronic Plan: Admit inpatient for safety and stabilization, Close observation Risks, benefits, side effects, alternatives discussed w/pt: Yes Patient agreeable to treatment: Yes Plans for Post Hospital Care: Home
[2017-09-05] MEDS: *HR* LORazepam 1 MG TABLET PO PRN ×3 (09:53→20:07)
[2017-09-05] MEDS: *HR* LORazepam 1 MG TABLET PO ONE ×2 (11:19→12:01)
[2017-09-05] MEDS: Nicotine 2 MG GUM BC PRN ×2 (12:37→20:07)
[2017-09-05] MEDS: Gabapentin 100 MG CAPSULE PO SCH ×2 (15:32→20:07)
[2017-09-05] MEDS ORDERED: Mirtazapine 15 MG TABLET PO SCH (21:00)
[2017-09-06] MEDS: Gabapentin 100 MG CAPSULE PO SCH (08:44)
[2017-09-06 10:07] VITALS: BP 122/72
--- NOTE | 2017-09-06 12:19 | Discharge Summary ---
Date of Encounter: 09/06/17 Time of Encounter: 11:30 Diagnosis - Discharge Diagnosis (1) Suicidal ideation Status: Resolved Comments: Patient denies , wants to leave AMA, state said that to be in . (2) Major depress dis, severe Status: Acute Comments: feels i am alright, wants to leave [facility]. refused to take medications i gave him . (3) Alcohol dependence Status: Acute Comments: patient declined out patient treatment. Qualifiers: Substance use status: with intoxication Complication of substance-induced condition: uncomplicated Qualified Code(s): F10.220 - Alcohol dependence with intoxication, uncomplicated (4) Polysubstance abuse Status: Acute Comments: DECLINED REHAB. (5) Personality disorder Status: Chronic Medications - Discharge Medications No Known Home Drugs 09/05/17 [History] 3 Allergy/AdvReac Type Severity Reaction Status Date / Time No Known Allergies Allergy Verified 07/15/17 16:59 Provider Date of admission: 09/05/17 00:26 Primary care physician: PCP NONE Assessment and Plan - Patient/Caregiver Discharge Instructions Activity: resume usual activities as tolerated Diet: regular diet - Follow up Plan Follow up with: NONE,PCP [Primary Care Provider] - Functional capacity at discharge: independent ambulation Overall status at discharge: Stable Disposition: Home, Self-Care Hospital Course Hospital course: Mr. Jaffe is a 31 year old male was admitted with h/o polysubstance use and alcohol intake, he expressed suicidal thoughts, after initial eval. he denied any suicidal ideation , last admission in 02/13 he had same situation and signed AMA. This admission he also does not want to be here and wants to go back to his mother , denies suicidal ideation and states i donot feel medications help me, i do not want gabapentin i have taken before and it did not help. during his stay he has been disruptive and wants to leave ,going to other patients room and taking their things states i do not want to here. At present wants to leave [facility]. denies psychosis, michelle or suicidal ideation. Patient was provided referral and information for out patient services and signed against Medical Advice . Patient was medically stable and denied suicidal ideation or self harm UPON DISCHARGE . Time spent discussing smoking cessation with patient: 3 to 10 minutes Does patient wish to continue nicotine replacement upon disc: No (does not want to stop.) - Time Spent with Patient Total time spent providing and/or coordinating discharge services: Less than 30 minutes Quality - Multiple Antipsychotics Patient discharged on 2 or more antipsychotic medications: No Procedures - Procedures Procedures: Medication Management, Crisis Stabilization, Supportive Therapy, Group Therapy, Psychoeducational Therapy Mental Status Exam - Mental Status Exam Patient orientation: Yes Person, Yes Time, Yes Place Level of alertness: Alert Patient appearance: Appropriate Behavior: calm, cooperative Psychomotor activity: Normal Eye contact: Maintains Eye Contact Mood description: Euthymic/stable Affect description: congruent with mood Speech pattern: Coherent Speech Volume: Normal Thought process: Logical Thought Content: Yes Intact Judgment: Good Insight: Minimal
[2017-09-06] MEDS: *HR* LORazepam 1 MG TABLET PO PRN (12:35)
== END 2017-09-06 12:45 | disposition home or self-care (01) | DRG 751 ==
LOC: 1ANU 18:30 → EMEROO 18:30 → OBSVTOIN 09-05 00:26 → 1ANU 09-05 00:36
PROVIDERS: ADMIT Psychiatry & Neurology Psychiatry; ATTEND Psychiatry & Neurology Psychiatry

== ENCOUNTER 2018-04-19 12:31 | Inpatient (IN) ==
--- NOTE | 2018-04-19 13:01 | Emergency Department Note ---
Disposition Clinical Impression: Suicidal ideation, Polysubstance abuse Urinary tract infection Qualifiers: Urinary tract infection type: site unspecified Hematuria presence: without hematuria Qualified Code(s): N39.0 - Urinary tract infection, site not specified Disposition: Admitted As Inpatient Referrals: NONE,PCP [Primary Care Provider] - Time of Disposition: 16:34 Psych HPI - General Chief Complaint: ED Psychiatric Symptoms Stated Complaint: SI Time Seen by Provider: 04/19/18 12:34 Source: patient, EMS Mode of arrival: EMS Limitations: no limitations Nursing Notes Reviewed: Yes Vital Signs Reviewed: Yes - History of Present Illness HPI Narrative: 32-year-old male history of depression and bipolar presents emergency department for suicidal ideation. He is typically on Zoloft and used to be on Thorazine by has been off of it for the past month or so. He is requesting to be placed back on the Thorazine to help with his symptoms. He has been stress lately with family issues as he is currently split with his family. He wants to get his life back together. Yet thoughts of hurting himself which would have included sitting in the car and having it running. He is has attempted suicide 3 times in the past twice with carbon monoxide and once with Sloan ingestion. He denies any of that today. Denies any alcohol use. He reports history of recreational drug abuse but none today. He has been admitted to psychiatric unit before. suicidal ideation no homicidal or hallucinations. He follows at [facility]. He denies any other complaints such as headache, neck pain, chest pain, shortness of breath, abdominal pain. Pt complaint: suicidal ideation, feels depressed - Related Data Home Medications Medication Instructions Recorded Confirmed No Known Home Drugs 09/05/17 09/05/17 Allergies Allergy/AdvReac Type Severity Reaction Status Date / Time No Known Allergies Allergy Verified 04/19/18 12:35 All systems ED: reviewed and negative except as stated. Review of Systems: As Per HPI Constitutional: Denies: fever, chills ENT ED: Denies: congestion Cardiovascular: Denies: chest pain Respiratory: Denies: cough, dyspnea Gastrointestinal: Denies: abdominal pain, nausea, vomiting Musculoskeletal: Denies: back pain, neck pain Psychiatric: Reports: depression, suicidal thoughts. Denies: homicidal thoughts , auditory hallucinations, visual hallucinations Past Medical History - Past Medical History Attestation: Yes The following information was validated with the patient. Source: patient Medical history: Reports: other Surgical history: Reports: orthopedic, other (Right lower leg fixation) Psychiatric history: Reports: anxiety, depression, panic disorder, prior suicide attempt, previous psychiatric hospitalization - Social History Smoking Status: Current every day smoker Smokeless Tobacco Status: No Alcohol use: Reports: none, heavy Drug use: Reports: opiates, marijuana, prescription drug abuse, other Physical Exam - General Limitations: no limitations General appearance: alert, in no apparent distress - Head Head exam: atraumatic, normocephalic, normal inspection - Eye Eye exam: Present: normal appearance, PERRL, EOMI - ENT ENT exam: normal exam, normal oropharynx, mucous membranes moist - Neck Neck exam: Present: normal inspection, full ROM, trachea midline - Chest Chest inspection: Present: normal inspection, symmetric chest wall rise - Respiratory Respiratory exam: Present: normal lung sounds bilaterally. Absent: respiratory distress, wheezes - Cardiovascular Cardiovascular exam: Present: regular rate, normal rhythm, normal heart sounds. Absent: systolic murmur, diastolic murmur - Abdominal Exam Abdominal exam: Present: soft, Non-Tender, normal bowel sounds. Absent: tenderness, distention, guarding, rebound, rigidity - Extremities Exam Extremities exam: Present: normal inspection, full ROM, normal capillary refill. Absent: tenderness, pedal edema - Back Exam Back exam: Present: normal inspection, full ROM. Absent: tenderness - Neurological Exam Neurological exam: Present: alert, oriented X3 - Psychiatric Psychiatric exam: Present: depressed, flat affect, suicidal ideation - Skin Skin exam: Present: warm, dry, intact, normal color. Absent: rash, cyanosis, diaphoresis Course - Reevaluation(s) Reevaluation #1: 1A called at 1347 for evaluation. Patient is positive for cocaine and marijuana. He is not intoxicated with alcohol as it is less than 10. His urinalysis does appear consistent with the urinary tract infection as he has positive nitrites, trace leuk esterase, and WBC 3-5 with few bacteria. He has no abdominal pain or tenderness. He denies any dysuria or hematuria. He denies any penile discharge. Will give him a dose of Keflex here for likely treat. Urine culture sent. Time: 13:47 - Consultations Consultation #1: 1A psychiatry has evaluated the patient and will accept them to the psychiatric unit for admission. Impression is suicidal ideation and urinary tract infection. Patient was given does a Keflex here. Time: 16:33 Vital Signs Temperature 98 F 04/19/18 12:36 Pulse Rate 73 04/19/18 12:36 Respiratory Rate 18 04/19/18 12:36 Blood Pressure 112/69 04/19/18 12:36 O2 Sat by Pulse Oximetry 97 04/19/18 12:36 Temperature 98 F 04/19/18 12:36 Pulse Rate 73 04/19/18 12:36 Respiratory Rate 18 04/19/18 12:36 Blood Pressure 112/69 04/19/18 12:36 O2 Sat by Pulse Oximetry 97 04/19/18 12:36 Oxygen Delivery Oxygen Delivery Room Air Psych - MDM Narrative Medical decision making narrative: Patient was discussed with my attending physician who agrees with ED management and final disposition. They independently evaluated the patient. Please refer to their attestation to this encounter for additional information. This note was generated by [employer] voice recognition software and as a result grammatical or spelling errors may occur using this program. - Medical Records Medical records reviewed: Yes I reviewed the patient's medical records. - Lab Data Lab results reviewed: Yes I reviewed the patient's lab results. Result diagrams: 04/19/18 12:56 04/19/18 12:56 Lab Results 04/19/18 04/19/18 04/19/18 Range/Units 12:56 12:56 12:58 WBC 4.9 (4.3-11.1) K/mcL RBC 5.07 (4.19-5.50) M/mcL Hgb 15.4 (12.9-16.9) g/dL Hct 45.9 (37.5-50.1) % MCV 90.5 (83.0-100.0) fL MCH 30.4 (28.0-33.3) pg MCHC 33.6 (31.6-35.5) g/dL RDW 14.8 H (11.5-14.5) % Plt Count 202 (140-400) K/mcL MPV 12.3 (9.4-12.4) fL Immature Gran % 0.4 (0-4) % Seg Neutrophils % 60.6 % Lymphocytes % 25.3 % Monocytes % 8.4 % Eosinophils % 4.3 % Basophils % 1.0 % Neutrophils # 3.0 (1.6-8.9) K/mcL Lymphocytes # 1.2 (0.6-4.6) K/mcL Monocytes # 0.4 (0.0-1.3) K/mcL Eosinophils # 0.2 (0.0-0.6) K/mcL Basophils # 0.1 (0.0-0.2) K/mcL Sodium 139 (136-145) mEq/L Potassium 4.4 (3.5-5.1) mEq/L Chloride 107 (98-107) mEq/L Carbon Dioxide 27 (23-29) mEq/L BUN 7 (6-20) mg/dL Creatinine 0.74 (0.70-1.30) mg/dL Est GFR ( Amer) > 60 (> 60) Est GFR (Non-Af Amer) > 60 (> 60) BUN/Creatinine Ratio 9 (6-26) Glucose 92 (70-105) mg/dL Calculated Osmolality 286 (280-300) Calcium 9.6 (8.6-10.3) mg/dL Urine Color Yellow (Yellow) Urine Clarity Clear (Clear) Urine pH 6.0 (5.0-8.0) pH Units Ur Specific [place] 1.013 (1.010-1.025) Urine Protein Negative (Neg-Trace) mg/dL Urine Glucose (UA) Normal (Normal) mg/dL Urine Ketones Negative (Negative) mg/dL Urine Blood Negative (Negative) Urine Nitrite Positive A (Negative) Urine Bilirubin Negative (Negative) Urine Urobilinogen Normal (Normal) mg/dL Ur Leukocyte Esterase Trace H (Negative) Urine Microscopic RBC 0-3 (0-3) per hpf Urine Microscopic WBC 3-5 H (0-3) per hpf Ur Squamous Epith Cells Moderate H (None-Few) per lpf Urine Bacteria Few (None-Few) per hpf Hyaline Casts None Seen (None-Few) per lpf Salicylates < 2.5 L (15.0-30.0) mg/dL Urine Opiates Screen (Fbmrpu=553) ng/mL Acetaminophen < 10 L (10-20) mcg/mL Ur Barbiturates Screen (Haipmu=396) ng/mL Ur Phencyclidine Scrn (Cutoff=25) ng/mL Ur Amphetamines Screen (Uurzkl=6143) ng/mL U Benzodiazepines Scrn (Pzptox=627) ng/mL Urine Cocaine Screen (Cutoff= 300) ng/mL U Marijuana (THC) Screen (Cutoff = 50) ng/mL Ethyl Alcohol < 10 (Less than 10) mg/dL 04/19/18 Range/Units 12:58 WBC (4.3-11.1) K/mcL RBC (4.19-5.50) M/mcL Hgb (12.9-16.9) g/dL Hct (37.5-50.1) % MCV (83.0-100.0) fL MCH (28.0-33.3) pg MCHC (31.6-35.5) g/dL RDW (11.5-14.5) % Plt Count (140-400) K/mcL MPV (9.4-12.4) fL Immature Gran % (0-4) % Seg Neutrophils % % Lymphocytes % % Monocytes % % Eosinophils % % Basophils % % Neutrophils # (1.6-8.9) K/mcL Lymphocytes # (0.6-4.6) K/mcL Monocytes # (0.0-1.3) K/mcL Eosinophils # (0.0-0.6) K/mcL Basophils # (0.0-0.2) K/mcL Sodium (136-145) mEq/L Potassium (3.5-5.1) mEq/L Chloride (98-107) mEq/L Carbon Dioxide (23-29) mEq/L BUN (6-20) mg/dL Creatinine (0.70-1.30) mg/dL Est GFR ( Amer) (> 60) Est GFR (Non-Af Amer) (> 60) BUN/Creatinine Ratio (6-26) Glucose (70-105) mg/dL Calculated Osmolality (280-300) Calcium (8.6-10.3) mg/dL Urine Color (Yellow) Urine Clarity (Clear) Urine pH (5.0-8.0) pH Units Ur Specific [place] (1.010-1.025) Urine Protein (Neg-Trace) mg/dL Urine Glucose (UA) (Normal) mg/dL Urine Ketones (Negative) mg/dL Urine Blood (Negative) Urine Nitrite (Negative) Urine Bilirubin (Negative) Urine Urobilinogen (Normal) mg/dL Ur Leukocyte Esterase (Negative) Urine Microscopic RBC (0-3) per hpf Urine Microscopic WBC (0-3) per hpf Ur Squamous Epith Cells (None-Few) per lpf Urine Bacteria (None-Few) per hpf Hyaline Casts (None-Few) per lpf Salicylates (15.0-30.0) mg/dL Urine Opiates Screen Negative (Lvsdur=931) ng/mL Acetaminophen (10-20) mcg/mL Ur Barbiturates Screen Negative (Bhkjna=238) ng/mL Ur Phencyclidine Scrn Negative (Cutoff=25) ng/mL Ur Amphetamines Screen Negative (Xbtknf=9201) ng/mL U Benzodiazepines Scrn Negative (Xogcus=180) ng/mL Urine Cocaine Screen Positive H (Cutoff= 300) ng/mL U Marijuana (THC) Screen Positive H (Cutoff = 50) ng/mL Ethyl Alcohol (Less than 10) mg/dL Psychiatric Medical Clearance - Medical Clearance Checklist Medical History: No Social History Section defined Current Vitals: Last Vital Signs Temp 98 F 04/19/18 12:36 Pulse 73 04/19/18 12:36 Resp 18 04/19/18 12:36 BP 112/69 04/19/18 12:36 Pulse Ox 97 04/19/18 12:36 Psychiatric Lab Panel: Drug Levels and Toxicity 04/19/18 04/19/18 12:56 12:58 Urine Opiates Screen Negative Acetaminophen < 10 L Ur Barbiturates Screen Negative Ur Phencyclidine Scrn Negative Ur Amphetamines Screen Negative U Benzodiazepines Scrn Negative Urine Cocaine Screen Positive H U Marijuana (THC) Screen Positive H Ethyl Alcohol < 10 Abnormal Labs: Abnormal lab results RDW 14.8 % (11.5-14.5) H 04/19/18 12:56 Urine Nitrite Positive (Negative) A 04/19/18 12:58 Ur Leukocyte Esterase Trace (Negative) H 04/19/18 12:58 Urine Microscopic WBC 3-5 per hpf (0-3) H 04/19/18 12:58 Ur Squamous Epith Cells Moderate per lpf (None-Few) H 04/19/18 12:58 Salicylates < 2.5 mg/dL (15.0-30.0) L 04/19/18 12:56 Acetaminophen < 10 mcg/mL (10-20) L 04/19/18 12:56 Urine Cocaine Screen Positive ng/mL (Cutoff= 300) H 04/19/18 12:58 U Marijuana (THC) Screen Positive ng/mL (Cutoff = 50) H 04/19/18 12:58 Statement of Medical Clearance: I have evaluated the patient, reviewed diagnostic information, and certify that the patient's medical condition is sufficiently stable that transfer to the psychiatric unit does not pose a significant risk of deterioration. Attestation Statement - Attestation Attestation: I, Magdi Giron, examined this patient and my medical decision-making was reviewed with the DEMOLITION ENGINEER/PA/Advanced Practice Nurse/Resident Physician. I agree with the documented findings, disposition and treatment plan as described except to the extent set forth below. 32-year-old male presents emergency department for concerns of suicidal ideation. Patient states he has been unable to take his medications over the past few months secondary to a lack of behavioral health follow-up. Patient states he had a plan to end his life by leaving the car on inside the garage. Patient states that he is tried this twice before and he has also tried overdosing on medications. Patient denies chest pain, shortness breath, abdominal pain, diarrhea. Patient will be medically cleared and evaluated by behavioral health. Patient medically cleared and evaluated by behavioral health who found him to require inpatient treatment. Patient will be admitted to one a.
[2018-04-19 13:09] LABS: Bilirubin,Urine Negative (Negative); Blood,Urine Negative (Negative); Clarity,Urine Clear (Clear); Color,Urine Yellow (Yellow); Glucose,Urine (UA) Normal (Normal); Ketones,Urine Negative (Negative); Leukocyte Esterase,Urine Trace (Negative); Nitrite,Urine Positive (Negative); Protein,Urine Negative (Neg-Trace); Specific Gravity,Urine 1.013 (1.010-1.025); Urobilinogen,Urine Normal (Normal)
[2018-04-19 13:13] LABS: Bacteria,Urine Few per hpf (None-Few); Hyaline Casts,Urine None Seen per lpf (None-Few); RBC,Urine 0-3 per hpf (0-3); Squamous Epithelial Cell,Urine Moderate per lpf (None-Few)
[2018-04-19 13:17] LABS: Basophils # 0.1 K/mcL (0.0-0.2); Eosinophils # 0.2 K/mcL (0.0-0.6); Eosinophils % 4.3 %; Hematocrit 45.9 % (37.5-50.1); Hemoglobin 15.4 g/dL (12.9-16.9); Immature Granulocytes % 0.4 % (0-4); Lymphocytes # 1.2 K/mcL (0.6-4.6); Lymphocytes % 25.3 %; Mean Corpuscular HGB Conc 33.6 g/dL (31.6-35.5); Mean Corpuscular Hemoglobin 30.4 pg (28.0-33.3); Mean Corpuscular Volume 90.5 fL (83.0-100.0); Mean Platelet Volume 12.3 fL (9.4-12.4); Monocytes # 0.4 K/mcL (0.0-1.3); Monocytes % 8.4 %; Platelet Count 202 K/mcL (140-400); Red Blood Count 5.07 M/mcL (4.19-5.50); Red Cell Distribution Width 14.8 % (11.5-14.5); Segmented Neutrophils % 60.6 %
[2018-04-19 13:29] LABS: Amphetamine Screen,Urine Negative ng/mL (Cutoff=1000); Barbiturate Screen,Urine Negative ng/mL (Cutoff=200); Benzodiazepines Screen,Urine Negative ng/mL (Cutoff=200); Cannabinoid Screen,Urine Positive ng/mL (Cutoff = 50); Cocaine Screen,Urine Positive ng/mL (Cutoff= 300); Opiate Screen,Urine Negative ng/mL (Cutoff=300); Phencyclidine Screen,Urine Negative ng/mL (Cutoff=25)
[2018-04-19 13:31] LABS: Acetaminophen < 10 mcg/mL (10-20); BUN/Creatinine Ratio 9 (6-26); Blood Urea Nitrogen 7 mg/dL (6-20); Calcium 9.6 mg/dL (8.6-10.3); Carbon Dioxide 27 mEq/L (23-29); Chloride 107 mEq/L (98-107); Ethanol < 10 mg/dL (Less than 10); Glucose 92 mg/dL (70-105); Osmolality,Calculated 286 (280-300); Potassium 4.4 mEq/L (3.5-5.1); Salicylate < 2.5 mg/dL (15.0-30.0); Sodium 139 mEq/L (136-145); eGFR For African Americans > 60 (> 60); eGFR For Non-African Americans > 60 (> 60)
[2018-04-19] MEDS ORDERED: cephALEXin 250 MG CAPSULE PO ONE (13:56)
[2018-04-19] MEDS ORDERED: Haloperidol Lactate 5 MG/ML VIAL IM PRN (17:03)
[2018-04-19] MEDS ORDERED: Mag Hydrox/Al Hydrox/Simeth 30 ML UDC PO PRN (17:03)
[2018-04-19] MEDS ORDERED: *HR* LORazepam 2 MG/ML VIAL IM PRN (17:03)
[2018-04-19] MEDS ORDERED: traZODone 50 MG TABLET PO PRN (17:03)
[2018-04-19] MEDS ORDERED: *HR* LORazepam 1 MG TABLET PO PRN (17:03)
[2018-04-19] MEDS ORDERED: Ibuprofen 400 MG TABLET PO PRN (17:03)
[2018-04-19] MEDS ORDERED: MOM Conc 10 ML UD.LIQ PO PRN (17:03)
[2018-04-19] MEDS: cephALEXin 500 MG CAPSULE PO SCH (21:04)
[2018-04-19] MEDS: Nicotine 2 MG GUM BC PRN (21:05)
[2018-04-19] MEDS: hydrOXYzine pamoate 25 MG CAPSULE PO PRN (21:19)
[2018-04-20] MEDS: cephALEXin 500 MG CAPSULE PO SCH ×2 (09:47→20:41)
[2018-04-20] MEDS: hydrOXYzine pamoate 25 MG CAPSULE PO PRN ×2 (14:03→20:42)
--- NOTE | 2018-04-20 14:03 | Psychiatry Progress Note ---
Date of Encounter: 04/20/18 Time of Encounter: 13:30 Subjective Interval history: I did the patient is a 32-year-old male who was admitted initially on observation but this was converted to full admission. Chief complaint: I have a severe depression I have trouble sleeping I have social anxiety I can get around people I do not know what I can do. History of present illness the patient presented with suicidal ideation he had no specific plan but has previously taken an overdose and previously started his car in an attempt to by carbon monoxide poisoning treated while he has no car he indicated that he was knowledgeable this method. The patient reports that he has had a 1 month trial of medicines but that his anxiety was so severe he could not make it for follow-up. He reports that since he was a teenager he was at social anxiety he avoided social activities he would avoid social settings such as [employer]. He had anticipatory anxiety. We get psych down he still is able to speak in public but has been "self- medicating" through most of his adult life. Today the patient presents with low mood disturbance of sleep difficulty with anger and irritability lack of enjoyment poor concentration sleep disturbance and suicidal ideation. The patient has reported panic attacks but these do not necessarily fulfill a crap classic description. The patient reports that he stopped drinking about 1-2 months ago the patient has had trouble with drinking in terms of OMVI's and elevation in liver enzyme elevation in August 2017. In that hospitalization the patient disagreed about medication and was discharged AMA. Patient reports avoiding close social contacts and that problems began after the separation from his a few years ago. He developed depressive symptoms in the last few years. The patient reports a legal history in which she is going to [facility] and now is apprehensive as he was arrested for driving without license on probation. As he fears that he will be thrown in the local [facility] for 3 or more weeks he is asked to stay in the hospital so that he can be observed on medicine. The patient has been scheduled the local [facility] but has not shown for appointments citing avoidance. Past psychiatric history reveals from 19- he was on clonazepam but he stopped going to the follow-up appointments and was taken off this medicine. The patient has never been on gabapentin propranolol naltrexone or Campral. He reports that he has not improved with BuSpar and trazodone he tolerated sertraline and says he felt better initially. He used Thorazine for sleep. He says Vistaril has not helped. The patient has recently used Suboxone for the last 14 days he denies any abuse of Xanax. The patient had marijuana and cocaine in his system and reports the abuse of Cocaine. Past medical history: Surgery plate right leg Illnesses urinary tract infection currently treated Allergies NKDA Meds none. 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 The patient's been only one time he has 1 daughter who is with mother. He has no car he has attended mainly one AA meeting he is not currently on probation by his report. The review of systems is essentially negative for somatic concerns Review of Systems Constitutional: Denies: fever, chills, weakness, weight change Eyes: Denies: eye pain, vision change Ears, Nose, Throat: Denies: ear pain, throat pain, dental pain, hearing loss, congestion Cardiovascular: Denies: chest pain, palpitations, dyspnea on exertion Respiratory: Denies: cough, dyspnea, wheezes Gastrointestinal: Denies: abdominal pain, nausea, vomiting, diarrhea, constipation Musculoskeletal: Denies: joint swelling, joint pain Neurological: Denies: headache, weakness, numbness, memory loss Psychiatric: Reports: anxiety, suicidal ideation, irritability Results - Vital Signs Vital Signs: Temp Pulse Resp BP Pulse Ox 98.5 F 64 16 121/74 97 04/19/18 21:00 04/20/18 09:00 04/20/18 09:00 04/20/18 09:00 04/19/18 12:36 Assessment and Plan (1) Major depressive disorder, recurrent severe without psychotic features Current visit: Yes Status: Acute Plan: Continue hospitalization, Close observation, Suicide Precautions per unit protocol Risks, benefits, side effects, alternatives discussed w/pt: Yes Patient agreeable to treatment: Yes (2) Suicidal ideations Current visit: Yes Status: Acute Plan: Suicide Precautions per unit protocol, Monitor sleep Risks, benefits, side effects, alternatives discussed w/pt: Yes (3) Urinary tract infection Current visit: Yes Status: Acute (4) Personality disorder Current visit: Yes Status: Chronic Plan: Monitor sleep, Monitor appetite Risks, benefits, side effects, alternatives discussed w/pt: Yes Patient agreeable to treatment: Yes Consult Discharge Plan - Plan Referrals: NONE,PCP [Primary Care Provider] - Psychiatry Exam - Constitutional Vitals: Temp Pulse Resp BP Pulse Ox 98.5 F 64 16 121/74 97 04/19/18 21:00 04/20/18 09:00 04/20/18 09:00 04/20/18 09:00 04/19/18 12:36 General appearance: age & developmentally appropriate, well-groomed, thin - Musculoskeletal Gait: brisk Station: stooped Strength & Tone: other - Psychiatric Patient Orientation: Yes Person, Yes Time, Yes Place, Yes Circumstance Level of alertness: Alert Behavior: agitated, suspicious Psychomotor activity: Increased Eye Contact: Minimal Contact Mood Description: Irritable Affect description: dysphoric Speech Volume: Soft/Quiet Speech pattern: normal rate Language & Vocabulary: consistent with education Thought Process: Linear Thought Content: Yes Suicidal ideation Attention Span Ability: Capable of Focused Attention Memory Description: Grossly Intact Patient Reliability: Questionable Historian Fund of knowledge: Yes average Intelligence Estimate: Average Judgment: Limited Insight: Minimal
--- NOTE | 2018-04-20 14:12 | Psychiatry History & Physical ---
Date of Encounter: 04/20/18 Time of Encounter: 14:00 History of Present Illness Patient Stated Chief Complaint: Suicidal ideaiton Medicare Admission Attestation: For traditional Medicare patients the provided hospital inpatient services are reasonable and necessary and in the case of services not specified as inpatient -only under 42 CFR 419.22 (n), that they are appropriately provided as inpatient services in accordance 42 CFR 412.3. For Critical Access Hospital the patient may reasonably be expected to be discharged or transferred to a hospital within 96 hours after admission to the Critical Access Hospital. Admitted From: Emergency Dept Plans for Post Hospital Care: Transfer Other History of Present Illness: Mr. Jaffe is a 32 year old male a 32-year-old male who was admitted initially on observation but this was converted to full admission. Chief complaint: I have a severe depression I have trouble sleeping I have social anxiety I can get around people I do not know what I can do. History of present illness: the patient presented with suicidal ideation he had no specific plan but has previously taken an overdose and previously started his car in an attempt to by carbon monoxide poisoning treated while he has no car he indicated that he was knowledgeable this method. The patient reports that he has had a 1 month trial of medicines but that his anxiety was so severe he could not make it for follow-up. He reports that since he was a teenager he was at social anxiety he avoided social activities he would avoid social settings such as [employer]. He had anticipatory anxiety. We get psych down he still is able to speak in public but has been "self- medicating" through most of his adult life. Today the patient presents with low mood disturbance of sleep difficulty with anger and irritability lack of enjoyment poor concentration sleep disturbance and suicidal ideation. The patient has reported panic attacks but these do not necessarily fulfill a crap classic description. The patient reports that he stopped drinking about 1-2 months ago the patient has had trouble with drinking in terms of OMVI's and elevation in liver enzyme elevation in August 2017. In that hospitalization the patient disagreed about medication and was discharged AMA. Patient reports avoiding close social contacts and that problems began after the separation from his a few years ago. He developed depressive symptoms in the last few years. The patient reports a legal history in which she is going to [facility] and now is apprehensive as he was arrested for driving without license on probation. As he fears that he will be thrown in the local [facility] for 3 or more weeks he is asked to stay in the hospital so that he can be observed on medicine. The patient has been scheduled the local [facility] but has not shown for appointments citing avoidance. Past psychiatric history reveals from [age] he was on clonazepam but he stopped going to the follow-up appointments and was taken off this medicine. The patient has never been on gabapentin propranolol naltrexone or Campral. He reports that he has not improved with BuSpar and trazodone he tolerated sertraline and says he felt better initially. He used Thorazine for sleep. He says Vistaril has not helped. The patient has recently used Suboxone for the last 14 days he denies any abuse of Xanax. The patient had marijuana and cocaine in his system and reports the abuse of Cocaine. Past medical history: Surgery plate right leg Illnesses urinary tract infection currently treated Allergies NKDA Meds none. 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 The patient's been only one time he has 1 daughter who is with mother. He has no car he has attended mainly one AA meeting he is not currently on probation by his report. The review of systems is essentially negative for somatic concerns Review of Systems Constitutional: Denies: fever, chills, weakness, weight change Eyes: Denies: eye pain, vision change Ears, Nose, Throat: Denies: ear pain, throat pain, dental pain, hearing loss, congestion Cardiovascular: Denies: chest pain, palpitations, dyspnea on exertion Respiratory: Denies: cough, dyspnea, wheezes Gastrointestinal: Denies: abdominal pain, nausea, vomiting, diarrhea, constipation Musculoskeletal: Denies: joint swelling, joint pain Neurological: Denies: headache, weakness, numbness, memory loss Psychiatric: Reports: anxiety, suicidal ideation, irritability Results - Vital Signs Vital Signs: Past Med Surg Social Fam HX - Past Medical History Source: patient Medical history: other - Past Psychiatric History Psychiatric history: Reports: previous psychiatric hospitalization Family psychiatric history: Yes Family History of Suicide: Completed - Past Surgical History Surgical History: orthopedic, other (Right lower leg fixation) - Social History Smoking Status: Current every day smoker Smokeless Tobacco Status: No Alcohol use: none, heavy Drug use: cocaine, opiates, marijuana, prescription drug abuse, other Occupational status: previously employed Current living situation: Homeless Activity Level: Independent ambulation Recent Out of Country Travel Within the Last 8 Weeks: No Exposure or Possible Exposure to Illness During Travel: No - Family History Mother Adopted: [place]: Tahira Age: 48 Family Member Ethnicity: Non- Living Status: Still Living Hx Family Cardiac Disorders: No Hx Family Respiratory Disorders: No Hx Family Cancer: No Hx Family GI Disorders: No Hx Family Genitourinary Disorders: No Hx Family Endocrine Disorder: No Hx Family Musculoskeletal Disorders: No Hx Family Neuromuscular Disorders: No Hx Family Neurologic Disorders: No Hx Family HEENT Disorders: No Hx Family Autoimmune Disorders: No Hx Family Reproductive Disorders: No Hx Family Psychosocial Disorders: No Hx Family Medical Disorders: No Medications & Allergies No Known Home Drugs 09/05/17 [History] 3 Allergy/AdvReac Type Severity Reaction Status Date / Time No Known Allergies Allergy Verified 04/19/18 12:35 Review of Systems Constitutional: Denies: fever, chills, weakness, weight change Eyes: Denies: eye pain, vision change Ears, Nose, Throat: Denies: ear pain, throat pain, dental pain, hearing loss, congestion Cardiovascular: Denies: chest pain, palpitations, dyspnea on exertion Respiratory: Denies: cough, dyspnea, wheezes Gastrointestinal: Denies: abdominal pain, nausea, vomiting, diarrhea, constipation Genitourinary male: Denies: urgency, dysuria, frequency, genital lesions Musculoskeletal: Denies: joint swelling, joint pain Integumentary: Denies: rash, lesions, pruritus Neurological: Denies: headache, weakness, numbness, memory loss Psychiatric: Reports: depression, anxiety, suicidal ideation, irritability Endocrine: Denies: fatigue, heat or cold intolerance Hematologic/Lymphatic: Denies: easy bruising, lymphadenopathy Allergic/Immunologic: Denies: urticaria, itchy eyes Exam - HEENT Head exam IM: Present: atraumatic, normal inspection, normocephalic Eye exam IM: Present: conjunctival injection, EOMI, normal appearance ENT exam IM: Present: mucous membranes dry - Neurological Neurological exam: Present: CN II-XII intact - Respiratory Respiratory exam IM: Present: accessory muscle use, chest wall tenderness - GI/Abdominal GI/Abdominal exam IM: Present: normal bowel sounds - Extremities Extremities exam IM: Present: calf tenderness - Skin Skin exam IM: Present: dry - Constitutional Vitals: Temp Pulse Resp BP Pulse Ox 98.5 F 64 16 121/74 97 04/19/18 21:00 04/20/18 09:00 04/20/18 09:00 04/20/18 09:00 04/19/18 12:36 General appearance: age & developmentally appropriate, thin - Musculoskeletal Gait: normal Station: stooped Strength & Tone: normal for patient - Psychiatric Patient Orientation: Yes Person, Yes Time, Yes Place, Yes Circumstance Level of alertness: Alert Behavior: hostile, guarded Psychomotor activity: Increased Eye Contact: Minimal Contact Mood Description: Irritable Affect description: congruent with mood Speech Volume: Soft/Quiet Speech pattern: normal rate Language & Vocabulary: consistent with education Thought Process: Intact Thought Content: Yes Suicidal ideation Attention Span Ability: Capable of Focused Attention Memory Description: Grossly Intact Patient Reliability: Questionable Historian Fund of knowledge: Yes average Intelligence Estimate: Average Judgment: Limited Insight: Minimal Results - Labs Labs: Laboratory Last Values WBC 4.9 K/mcL (4.3-11.1) 04/19/18 12:56 RBC 5.07 M/mcL (4.19-5.50) 04/19/18 12:56 Hgb 15.4 g/dL (12.9-16.9) 04/19/18 12:56 Hct 45.9 % (37.5-50.1) 04/19/18 12:56 MCV 90.5 fL (83.0-100.0) 04/19/18 12:56 MCH 30.4 pg (28.0-33.3) 04/19/18 12:56 MCHC 33.6 g/dL (31.6-35.5) 04/19/18 12:56 RDW 14.8 % (11.5-14.5) H 04/19/18 12:56 Plt Count 202 K/mcL (140-400) 04/19/18 12:56 MPV 12.3 fL (9.4-12.4) 04/19/18 12:56 Immature Gran % 0.4 % (0-4) 04/19/18 12:56 Seg Neutrophils % 60.6 % 04/19/18 12:56 Lymphocytes % 25.3 % 04/19/18 12:56 Monocytes % 8.4 % 04/19/18 12:56 Eosinophils % 4.3 % 04/19/18 12:56 Basophils % 1.0 % 04/19/18 12:56 Neutrophils # 3.0 K/mcL (1.6-8.9) 04/19/18 12:56 Lymphocytes # 1.2 K/mcL (0.6-4.6) 04/19/18 12:56 Monocytes # 0.4 K/mcL (0.0-1.3) 04/19/18 12:56 Eosinophils # 0.2 K/mcL (0.0-0.6) 04/19/18 12:56 Basophils # 0.1 K/mcL (0.0-0.2) 04/19/18 12:56 Sodium 139 mEq/L (136-145) 04/19/18 12:56 Potassium 4.4 mEq/L (3.5-5.1) 04/19/18 12:56 Chloride 107 mEq/L (98-107) 04/19/18 12:56 Carbon Dioxide 27 mEq/L (23-29) 04/19/18 12:56 BUN 7 mg/dL (6-20) 04/19/18 12:56 Creatinine 0.74 mg/dL (0.70-1.30) 04/19/18 12:56 Est GFR ( Amer) > 60 (> 60) 04/19/18 12:56 Est GFR (Non-Af Amer) > 60 (> 60) 04/19/18 12:56 BUN/Creatinine Ratio 9 (6-26) 04/19/18 12:56 Glucose 92 mg/dL (70-105) 04/19/18 12:56 Calculated Osmolality 286 (280-300) 04/19/18 12:56 Calcium 9.6 mg/dL (8.6-10.3) 04/19/18 12:56 Urine Color Yellow (Yellow) 04/19/18 12:58 Urine Clarity Clear (Clear) 04/19/18 12:58 Urine pH 6.0 pH Units (5.0-8.0) 04/19/18 12:58 Ur Specific [place] 1.013 (1.010-1.025) 04/19/18 12:58 Urine Protein Negative mg/dL (Neg-Trace) 04/19/18 12:58 Urine Glucose (UA) Normal mg/dL (Normal) 04/19/18 12:58 Urine Ketones Negative mg/dL (Negative) 04/19/18 12:58 Urine Blood Negative (Negative) 04/19/18 12:58 Urine Nitrite Positive (Negative) A 04/19/18 12:58 Urine Bilirubin Negative (Negative) 04/19/18 12:58 Urine Urobilinogen Normal mg/dL (Normal) 04/19/18 12:58 Ur Leukocyte Esterase Trace (Negative) H 04/19/18 12:58 Urine Microscopic RBC 0-3 per hpf (0-3) 04/19/18 12:58 Urine Microscopic WBC 3-5 per hpf (0-3) H 04/19/18 12:58 Ur Squamous Epith Cells Moderate per lpf (None-Few) H 04/19/18 12:58 Urine Bacteria Few per hpf (None-Few) 04/19/18 12:58 Hyaline Casts None Seen per lpf (None-Few) 04/19/18 12:58 Salicylates < 2.5 mg/dL (15.0-30.0) L 04/19/18 12:56 Urine Opiates Screen Negative ng/mL (Cumzsf=640) 04/19/18 12:58 Acetaminophen < 10 mcg/mL (10-20) L 04/19/18 12:56 Ur Barbiturates Screen Negative ng/mL (Kenlra=366) 04/19/18 12:58 Ur Phencyclidine Scrn Negative ng/mL (Cutoff=25) 04/19/18 12:58 Ur Amphetamines Screen Negative ng/mL (Fcjppo=9475) 04/19/18 12:58 U Benzodiazepines Scrn Negative ng/mL (Hqesrf=292) 04/19/18 12:58 Urine Cocaine Screen Positive ng/mL (Cutoff= 300) H 04/19/18 12:58 U Marijuana (THC) Screen Positive ng/mL (Cutoff = 50) H 04/19/18 12:58 Ethyl Alcohol < 10 mg/dL (Less than 10) 04/19/18 12:56 Assessment and Plan (1) Major depressive disorder, recurrent severe without psychotic features Current visit: Yes Status: Acute Plan: Admit inpatient for safety and stabilization, Encourage participation in unit milieu, Group Therapy Risks, benefits, side effects, alternatives discussed w/pt: Yes Patient agreeable to treatment: Yes Plans for Post Hospital Care: Transfer Other Estimated Length of Stay (Days): 3 (2) Suicidal ideations Current visit: Yes Status: Acute Plan: Admit inpatient for safety and stabilization, Secure weapons Risks, benefits, side effects, alternatives discussed w/pt: Yes Patient agreeable to treatment: Yes Plans for Post Hospital Care: Transfer Other (3) Urinary tract infection Current visit: Yes Status: Acute Plan: Other Risks, benefits, side effects, alternatives discussed w/pt: Yes Patient agreeable to treatment: Yes Plans for Post Hospital Care: Transfer Other Qualifiers: Urinary tract infection type: acute cystitis Hematuria presence: with hematuria Qualified Code(s): N30.01 - Acute cystitis with hematuria (4) Personality disorder Current visit: Yes Status: Chronic Plan: Admit inpatient for safety and stabilization, Group Therapy, Monitor sleep Risks, benefits, side effects, alternatives discussed w/pt: Yes Patient agreeable to treatment: Yes (5) Cannabis abuse, uncomplicated Current visit: Yes Status: Chronic Plan: Admit inpatient for safety and stabilization, Close observation Risks, benefits, side effects, alternatives discussed w/pt: Yes Patient agreeable to treatment: Yes Plans for Post Hospital Care: Home (6) Cocaine abuse, uncomplicated Current visit: Yes Status: Chronic Plan: Admit inpatient for safety and stabilization, Close observation, Group Therapy, Monitor sleep Risks, benefits, side effects, alternatives discussed w /pt: Yes Patient agreeable to treatment: Yes Plans for Post Hospital Care: Transfer Other
[2018-04-20] MEDS: Nicotine 2 MG GUM BC PRN ×2 (18:45→20:47)
[2018-04-20] MEDS ORDERED: chlorproMAZINE 25 MG TABLET PO SCH (21:00)
[2018-04-21] MEDS: cephALEXin 500 MG CAPSULE PO SCH ×2 (09:34→20:43)
[2018-04-21] MEDS: Nicotine 2 MG GUM BC PRN (15:06)
--- NOTE | 2018-04-21 15:24 | Psychiatry Progress Note ---
Date of Encounter: 04/21/18 Time of Encounter: 15:00 Subjective Interval history: The patient returned. He is spent some time in his room. He has been angry but tolerated Thorazine and sertraline. He tried Inderal but did not feel that it helped. He reports that he is discussed this with several family members and friends and that he would like try gabapentin 100 mg 3 times a day. He notes that his Thorazine dose was 50 mg in 150 mg. The patient also feels that he did better on 100 mg sertraline. The patient provided an address which she could be transported to in [place]. He recognizes the risks of relapse and he recognized that he had a court date but nonetheless was willing to be transported to this address at the time of discharge. He notes irritability and thoughts of suicide are of concern. He discussed sobriety briefly. The patient may have an impending [facility] term and was told that some medicines may not be available at the time of going and that facility. Nonetheless he anticipates a short time. The patient spent time talking about his attention and difficulty thinking his thoughts were going fast this may cause some occupational impairment but nonetheless he still thinks he has an attention deficit disorder. He says that he was evaluated for this is a child but never took medicines and The patient asked for medicine for attention deficit disorder but. Stabilization evaluation may be necessary before doing. A period of sobriety would be necessary and that was discussed. Patient did sleep and did not report significant side effects Review of Systems Psychiatric: Reports: depression, anxiety, suicidal ideation, irritability, mood swings Results - Vital Signs Vital Signs: Temp Pulse Resp BP Pulse Ox 98.9 F 72 16 111/68 97 04/21/18 09:00 04/21/18 09:00 04/21/18 09:00 04/21/18 09:00 04/19/18 12:36 Assessment and Plan (1) Major depressive disorder, recurrent severe without psychotic features Current visit: Yes Status: Acute Plan: Continue hospitalization, Close observation, Encourage participation in unit milieu, Group Therapy, Monitor sleep Risks, benefits, side effects, alternatives discussed w/pt: Yes Patient agreeable to treatment: Yes (2) Suicidal ideations Current visit: Yes Status: Acute Plan: Continue hospitalization, Close observation, Suicide Precautions per unit protocol, Monitor sleep Risks, benefits, side effects, alternatives discussed w/pt: Yes Patient agreeable to treatment: Yes (3) Urinary tract infection Current visit: Yes Status: Acute Risks, benefits, side effects, alternatives discussed w/pt: Yes Patient agreeable to treatment: Yes Qualifiers: Urinary tract infection type: acute cystitis Hematuria presence: with hematuria Qualified Code(s): N30.01 - Acute cystitis with hematuria (4) Personality disorder Current visit: Yes Status: Chronic Plan: Continue hospitalization, Close observation, Monitor sleep Risks, benefits, side effects, alternatives discussed w/pt: Yes Patient agreeable to treatment: Yes (5) Cannabis abuse, uncomplicated Current visit: Yes Status: Chronic Plan: Continue hospitalization, Group Therapy Risks, benefits, side effects, alternatives discussed w/pt: Yes Patient agreeable to treatment: Yes (6) Cocaine abuse, uncomplicated Current visit: Yes Status: Chronic Plan: Continue hospitalization, Close observation, Group Therapy, Monitor sleep Risks, benefits, side effects, alternatives discussed w/pt: Yes Patient agreeable to treatment: Yes Consult Discharge Plan - Plan Referrals: [facility], [place] [Other] (The above appointment is with Isabella. When you come to your first appointment, you will be completing paperwork, meeting with a counselor, and developing a treatment plan. You will receive follow- up appointments for on-going services, which could include community support, mental health and substance abuse counseling, groups/partial hospitalization programming, medication assisted treatment, and psychiatric medication management. Please bring the following with you to your first visit to the clinic: 1) proof of insurance and 2) photo ID. The above appointment(s) reflects first availability. You may contact the office regularly to check for cancellations that may allow you to be seen sooner.) [facility] [Other] Psychiatry Exam - Constitutional Vitals: Temp Pulse Resp BP Pulse Ox 98.9 F 72 16 111/68 97 04/21/18 09:00 04/21/18 09:00 04/21/18 09:00 04/21/18 09:00 04/19/18 12:36 General appearance: age & developmentally appropriate, well-groomed, well- nourished - Musculoskeletal Gait: normal Station: other Strength & Tone: normal for patient - Psychiatric Patient Orientation: Yes Person, Yes Time, Yes Place Level of alertness: Alert Behavior: calm, cooperative Psychomotor activity: Normal Eye Contact: Maintains Eye Contact Mood Description: Euthymic/stable, Depressed Affect description: congruent with mood, full range Speech Volume: Normal Speech pattern: normal rate, normal rhythm, normal tone, fluent, spontaneous Language & Vocabulary: consistent with education Thought Process: Linear, Goal Oriented Thought Content: Yes Suicidal ideation, No Homicidal ideation, No Overt delusions Perceptual Disturbances: No Auditory hallucinations, No Visual hallucinations Attention Span Ability: Capable of Focused Attention Memory Description: Grossly Intact Patient Reliability: Reliable Historian Fund of knowledge: Yes abstraction ability, Yes aware of current events Intelligence Estimate: Average Judgment: Fair Insight: Partial
[2018-04-21] MEDS: Gabapentin 100 MG CAPSULE PO SCH (20:43)
[2018-04-21] MEDS ORDERED: chlorproMAZINE 25 MG TABLET PO SCH (21:00)
[2018-04-22] MEDS ORDERED: chlorproMAZINE 25 MG TABLET PO SCH (09:00)
--- NOTE | 2018-04-22 09:03 | Discharge Summary ---
Date of Encounter: 04/22/18 Time of Encounter: 09:00 Diagnosis - Discharge Diagnosis (1) Major depressive disorder, recurrent severe without psychotic features Status: Acute (2) Suicidal ideations Status: Resolved (3) Urinary tract infection Status: Resolved Qualifiers: Urinary tract infection type: acute cystitis Hematuria presence: with hematuria Qualified Code(s): N30.01 - Acute cystitis with hematuria (4) Personality disorder Status: Chronic (5) Cannabis abuse, uncomplicated Status: Chronic (6) Cocaine abuse, uncomplicated Status: Chronic Medications - Discharge Medications Prescriptions: cephALEXin [Keflex] 500 mg PO BID 5 Days #10 capsule chlorproMAZINE [Thorazine] 50 mg PO QAM 30 Days #60 tablet chlorproMAZINE [Thorazine] 150 mg PO HS 30 Days #150 tablet Gabapentin [Neurontin] 100 mg PO TID 30 Days #90 capsule Sertraline [Zoloft] 100 mg PO DAILY 30 Days #30 tablet Gabapentin [Neurontin] 100 mg PO TID 30 Days #90 capsule 04/22/18 [Rx] Sertraline [Zoloft] 100 mg PO DAILY 30 Days #30 tablet 04/22/18 [Rx] cephALEXin [Keflex] 500 mg PO BID 5 Days #10 capsule 04/22/18 [Rx] chlorproMAZINE [Thorazine] 50 mg PO QAM 30 Days #60 tablet 04/22/18 [Rx] chlorproMAZINE [Thorazine] 150 mg PO HS 30 Days #150 tablet 04/22/18 [Rx] 3 Allergy/AdvReac Type Severity Reaction Status Date / Time No Known Allergies Allergy Verified 04/19/18 12:35 Provider Date of admission: 04/19/18 17:03 Primary care physician: PCP NONE Discharging clinician: Varun Salvador Psychiatry Exam - Constitutional Vitals: Temp Pulse Resp BP Pulse Ox 99.3 F 72 16 119/78 97 04/21/18 21:00 04/21/18 21:00 04/21/18 21:00 04/21/18 21:00 04/19/18 12:36 General appearance: age & developmentally appropriate, well-groomed, well- nourished - Musculoskeletal Gait: normal Station: stiff Strength & Tone: normal for patient - Psychiatric Patient Orientation: Yes Person, Yes Time, Yes Place Level of alertness: Alert Behavior: calm, cooperative Psychomotor activity: Normal Eye Contact: Maintains Eye Contact Mood Description: Anxious Affect description: congruent with mood, full range, anxious Speech Volume: Normal Speech pattern: normal rate, normal rhythm, normal tone, fluent, spontaneous Language & Vocabulary: consistent with education Thought Process: Linear, Goal Oriented Thought Content: No Suicidal ideation, No Homicidal ideation, No Overt delusions Perceptual Disturbances: No Auditory hallucinations, No Visual hallucinations Attention Span Ability: Capable of Focused Attention Memory Description: Grossly Intact Patient Reliability: Reliable Historian Fund of knowledge: Yes abstraction ability, Yes aware of current events Intelligence Estimate: Average Judgment: Fair Insight: Partial Hospital Course Hospital course: Mr. Jaffe is a 32 year old male The patient presented to the hospital emergency room. He had a variety of stressors. The patient's drug screen was positive for cocaine and marijuana. In addition he reported taking is Suboxone for within the past 10 days prior to admission. The patient had suicidal ideation and in fact he has previous suicide attempts although these may have occurred during a period of intoxication or drug abuse. Nonetheless the patient had significant mood disturbance irritability and insomnia social anxiety social phobia and he also reported attention problems. The patient been previously hospitalized and discharged AMA grade this record was reviewed. The patient was evaluated and went with the unconventional treatment of sertraline plus Thorazine. He tolerated the higher doses of the medicines. A trial of Inderal was only for 1 day and was tolerated by not selected by the patient. The patient had a urinary tract infection at the time of admission he was relatively asymptomatic but Keflex was started in the hospital stay and will be continued on an outpatient basis. The patient reported social phobia difficulty being around people going to large stores. And he requested gabapentin 100 mg 3 times a day as a starting dose. It was felt that this would be compatible with his regimen. The patient may have legal charges in the week and may have to spend some time in a correctional facility so controlled substances and prohibited substances were avoided although he is cautioned that any of these medicines may not be available in a fpc or halfway setting. The patient provided an address that he could be discharged to. His pharmacy is [facility] but he requested of the medicine through the [place] pharmacy as he would be going out of town. The patient was counseled on the abuse of substances the need to maintain sobriety. He has been to one NA meeting and was recommended to continue with NA after discharge. The patient was not a candidate for naltrexone due to the recent use of Suboxone. He was not a candidate for Campral as it was not on the hospital formulary. These medicines could be considered in the future. Discharge follow-up arrangements were made. The patient had a resolution of suicidal ideation while he still had anxiety irritability mood changes and attentional problems and was told that he could follow-up on an outpatient basis previously the patient is not Follow-up appointments. He was advised to keep his appointments as scheduled or contact his local mental Health Center. - Time Spent with Patient Total time spent providing and/or coordinating discharge services: Less than 30 minutes Assessment and Plan - Patient/Caregiver Discharge Instructions Activity: resume usual activities as tolerated Diet: regular diet - Follow up Plan Follow up with: Kat Stanley [Other] - 04/28/18 11:00 am (The above appointment is with Isabella. When you come to your first appointment, you will be completing paperwork, meeting with a counselor, and developing a treatment plan. You will receive follow- up appointments for on-going services, which could include community support, mental health and substance abuse counseling, groups/partial hospitalization programming, medication assisted treatment, and psychiatric medication management. Please bring the following with you to your first visit to the clinic: 1) proof of insurance and 2) photo ID. The above appointment(s) reflects first availability. You may contact the office regularly to check for cancellations that may allow you to be seen sooner.) [facility] [Other] - 05/06/18 2:15 pm (The above appointment is with Dr. Yan for primary health care and medication management services. You will also be referred to see the [facility] provider in the office after this appointment. Please bring your photo ID, insurance card and medication list.) Overall status at discharge: Stable Disposition: Home, Self-Care Quality - Multiple Antipsychotics Patient discharged on 2 or more antipsychotic medications: No Procedures - Procedures Procedures: Medication Management, Crisis Stabilization, Supportive Therapy, Group Therapy, Psychoeducational Therapy
[2018-04-22] MEDS: cephALEXin 500 MG CAPSULE PO SCH (09:09)
[2018-04-22] MEDS: Gabapentin 100 MG CAPSULE PO SCH (09:09)
[2018-04-22 09:58] VITALS: BP 116/78
== END 2018-04-22 14:30 | disposition home or self-care (01) | DRG 751 ==
LOC: EMEROO 12:31 → INTOOBSV 16:36 → 1ANU 16:36
PROVIDERS: ADMIT Psychiatry & Neurology Forensic Psychiatry; ATTEND Psychiatry & Neurology Forensic Psychiatry